=== PATIENT | male | born 1960 | race Caucasian/White ===

== ENCOUNTER 2019-03-23 21:06 | Inpatient (IN) ==
[2019-03-23] MEDS ORDERED: *HR* FentaNYL (PF) 100 MCG/2 ML VIAL ONE (21:48)
[2019-03-23] MEDS ORDERED: *HR* Midazolam HCl 2 MG/2 ML VIAL ONE (21:48)
[2019-03-23] MEDS ORDERED: Verapamil 5 MG/2 ML VIAL ONE (21:52)
--- NOTE | 2019-03-23 22:36 | Cardiology Consult Note ---
Date of Encounter: 03/23/19 Time of Encounter: 21:25 Assessment and Plan Discussion w patient/family: The assessment and plan as outlined above was discussed with the patient and/or family members who expressed understanding and agreement. All questions were answered. Thank you for involving us in the care of your patient. Please call with any questions. Discussed with patient. No family available History of Present Illness Consult date: 03/23/19 Consult reason: STEMI Chief complaint: 58 yo male with cp and sob and emesis. Seen in [facility] and transferred. Peter History of present illness: Mr. Crawford is a 58 year old male seen at [facility] with STEMI. Took some time at [facility] for stabilization. Past Med Surg Social Fam HX - Past Medical History Medical history: hyperlipidemia, hypertension Additional medical history: Chronic back pain Psychiatric history: anxiety, depression - Past Surgical History Additional surgical history: Abdominal Stent Graft - Social History Smoking Status: Current every day smoker Smokeless Tobacco Status: No Alcohol use: none Drug use: none Medications and Allergies Albuterol Sulfate [Proair Hfa] 1 puff IH Q6H PRN 04/27/16 [History] Atorvastatin [Lipitor] 20 mg PO HS 04/27/16 [History] Losartan/HCTZ [Hyzaar 50-12.5 Tablet] 1 each PO DAILY 04/27/16 [History] Metoprolol [Lopressor] 100 mg PO DAILY 04/27/16 [History] OxyCODONE/APAP 10/325 [Percocet 10/325 MG] 1 each PO Q6HR PRN 04/27/16 [History] Allergy/AdvReac Type Severity Reaction Status Date / Time azithromycin [From Zithromax] AdvReac Nausea Verified 03/28/16 08:02 levofloxacin [From Levaquin] AdvReac Muscle Pain Verified 03/28/16 08:02 All Systems Review: The remainder of the systems were reviewed and are negative - Cardiovascular Cardiovascular: as per HPI, diaphoresis, dyspnea on exertion - Respiratory Respiratory: dyspnea Results - EKG Interpretation EKG results cardiology: other (inferior wall STEMI. Cath done emergently and needs CABG) Consult Discharge Plan - Plan Additional Instructions: Surgical consult for CABG
[2019-03-23] MEDS ORDERED: Nitroglycerin 0.4 MG TAB.SUBL SL PRN (22:41)
--- NOTE | 2019-03-23 22:41 | Invasive Diagnostic Lab Proc ---
Name: Jose Crawford Date of Study: 03/23/2019 Date: 1960 Ht: 70.1in Medical Record#: [id number] Age: 58 Wt: 218.26lb Gender: Male BSA: 2.17 Order #: [id number] BMI: 31.25 Physicians Procedure Physician: Calvin Barraza MD Referring MD: Referring MD: Staff Name Position [facility] 09:35 PM Job Medina RN Drain Tile Press Operator 09:35 PM Yuliet Marquez RN Scrub 09:35 PM Indications Indication STEMI Procedures Performed Procedure L HRT ARTERY/VENTRICLE ANGIO Pre-Procedure Checklist Pt not NPO for procedure and MD aware. Blood Pressure: 201/117 Plan of Care Patient will tolerate the procedure without complications. Adequate level of comfort will be maintained. Hemodynamics will remain stable Patient will recover from procedure without complications. Respiratory function will be maintained. Cardiac rhythm will remain stable. Patient temperature will be maintained. Patient and/or family have verbalized understanding of the procedure. Patient Education Allergies azithromycin levofloxacin Vital Signs Time BP (mmHg) HR (bpm) O2 Sat. RR (bpm) LOC 09:31 PM 201 / 117 72 92 % 20 5 = Fully awake and oriented or at pre-proc level 09:51 PM / % 5 = Fully awake and oriented or at pre-proc level 09:51 PM / % 4 = Oriented but drowsy 09:49 PM 186 / 109 87 95 % 13 09:53 PM 194 / 109 82 95 % 10 09:58 PM 170 / 99 67 93 % 14 10:03 PM 164 / 101 89 93 % 15 10:08 PM 164 / 101 79 93 % 13 10:13 PM 165 / 106 77 94 % 15 10:18 PM 173 / 109 73 95 % 17 Procedural Medications Time Medication Dose Units Method Given By 09:50 PM Oxygen 2 L/min nasal cannula Job Medina RN 09:52 PM Lidocaine 2% 1 ml Subcutaneous Calvin Barraza MD 09:53 PM Heparin 3000 units Nitroglycerin 200 mcg Verapamil 2.5 mg Intraarterial Calvin Barraza MD 09:50 PM Versed 1 mg Intravenous Job Medina RN 09:50 PM Fentanyl 50 mcg Intravenous Job Medina RN Zack Score Preprocedure Postprocedure Activity 2- Moves 4 extremities sustained head lift Activity 2- Moves 4 extremities sustained head lift Circulation 2- SBP +/= 20 points of pre-anesthetic level Circulation 2- SBP +/= 20 points of pre-anesthetic level Consciousness 2- Awake and alert oriented x 3 Consciousness 2- Awake and alert oriented x 3 O2 Saturation 2- Able to maintain O2 satruation of 92% on room air O2 Saturation 2- Able to maintain O2 satruation of 92% on room air Respiratory 2- Able to deep breathe and cough well Respiratory 2- Able to deep breathe and cough well Total Score 10 Total Score 10 Contrast Agent: Isovue Diagnostic Contrast: 96 ml Total Contrast: 96 ml Fluoro Dose: 40 mGy Procedure Log Time Note Enter By 09:28 PM [facility] 09:35 PM Janelle Corbin RN Position: Monitor Time in: 21:35 [place] [id number] 09:35 PM Job Medina RN Position: Drain Tile Press Operator Time in: 21:35 [place] [id number] 09:35 PM Yuliet Marquez RN Position: Scrub Time in: 21:35 [place] [address] 09:35 PM Patient charges- Angio tray pack, Navilyst 3mm J, Pulse Oximetry and ACIST tubing and transducer [facility] 09:42 PM 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 Informed consent was obtained. [facility] 09:42 PM Procedure start 21:42 [facility] 09:47 PM Vitals capture started with the following parameters, Patient=Adult, Interval=5 min, Initial Ifaoavfd=597 mmHg, Deflation Rate=3 mmHg, Cuff placed on Right Arm 09:49 PM HR=87 bpm, OUBM=881/109 mmhg, SpO2=95.0 %, Resp=13 B/min 09:50 PM Time: 21:50 Versed 1 mg Intravenous Given by Job Medina RN carlitos 09:50 PM Time: 21:50 Fentanyl 50 mcg Intravenous Given by Job Medina RN [email or web address] 09:50 PM Hair removed from procedure site in procedure lab using clippers. Right wrist and Right groin prepped with Chloraprep by Yuliet Marquez RN, then patient was draped. Skin intact. tsoummers 09:50 PM Time: 21:50 Oxygen on at 2 L/min per nasal cannula by Job Medina RN tsoummers 09:50 PM Time out was performed according to hospital policy. Conscious sedation and anesthesia was achieved (see medication log with in this report above) tsoummers 09:50 PM pt received 4000 heparin IVP JEWELRY FINISHER and 180mg brilinta orally JEWELRY FINISHER. Dr. Barraza aware tsoummers 09:51 PM Time: 21:51 Patient comfortable and pain free: No tsoummers :51 PM Time: 21:51LOC: 5 = Fully awake and oriented or at pre-proc level tsoummers 09:52 PM Time: 21:52 1 ml Lidocaine 2% to right radial Subcutaneous Given by Calvin Barraza MD oumm 09:53 PM Access obtained by percutaneous puncture. 6Fr 10cm Terumo [place] sheath placed in right Radial artery. [id number] tsoummers 09:53 PM HR=82 bpm, SCAU=761/109 mmhg, SpO2=95.0 %, Resp=10 B/min 09:53 PM Time: 21:53 Patient given 3,000 units Heparin, 200 mcg Nitroglycerin, and 2.5 mg Verapamil Intraarterial by Calvin Barraza MD. This is given to reduce risk of vessel spasm and thrombosis. tsoummers 09:54 PM Pressure channel 1 zero failed. 09:54 PM Pressure channel 1 zeroed. 09:54 PM Recorded ECG: HR=69 Condition=Condition 1 09:56 PM Pressure channel 1 zero failed. 09:57 PM 0.035 145cm Navilyst 3mmJ wire [id number] tsoummers 09:57 PM 5Fr FL 4 catheter inserted over the wire C tsoummers 09:58 PM wire removed tsoummers 09:58 PM HR=67 bpm, UCQD=281/99 mmhg, SpO2=93.0 %, Resp=14 B/min 09:59 PM LCA angiography performed in multiple views. tsoummers 10:01 PM 0.035 260cm Navilyst 3mmJ wire [id number] tsoummers 10:01 PM Catheter removed tsoummers 10:03 PM 6Fr JR 4 Runway guide catheter was used to cannulate the PCI vessel successfully. reused? No tsoummers 10:03 PM wire removed tsoummers 10:03 PM HR=89 bpm, EZDR=326/101 mmhg, SpO2=93.0 %, Resp=15 B/min 10:04 PM Recorded Pressure: Ao, HR=77, Condition=Condition 1 (Aorta) Ao 151/83/112 10:04 PM RCA angiography performed in multiple views. tsoummers 10:06 PM Recorded Pressure: Ao, HR=78, Condition=Condition 1 (Aorta) Ao 116/61/83 10:06 PM Time: 21:51 Patient comfortable and pain free: Yes tsoummers 10:06 PM Time: 21:51LOC: 4 = Oriented but drowsy tsoummers 10:08 PM HR=79 bpm, VFKT=962/101 mmhg, SpO2=93.0 %, Resp=13 B/min 10:09 PM Guide catheter removed intact. tsoummers 10:10 PM 5Fr Pigtail catheter inserted over the wire [facility] tsoummers 10:12 PM Recorded Pressure: LV, HR=68, Condition=Condition 1 (Left Ventricle) LV 148/-5/11 10:12 PM Catheter crossed the aortic valve and was selectively placed in the left ventricle. Pressures recorded on pullback for left heart catheterization. tsoummers 10:12 PM Bolus angiogram of left Ventricle complete: 10 ml/sec for a total of 30 mls tsoummers 10:12 PM Recorded Pressure: LV, Ao, HR=80, Condition=Condition 1 (Left Ventricle) LV 153/-4/13, (Aorta) Ao 157/82/113 10:13 PM Catheter removed tsoummers 10:13 PM HR=77 bpm, XQFN=640/106 mmhg, SpO2=94.0 %, Resp=15 B/min 10:15 PM Sign out completed: Radiation Dose 304.80 mGy, 39.5 Gy/cm2 Fluoro Time: 2.9 Isovue 370 - 200ml contrast 96 ml given by Calvin Barraza MD. Complications: None. The patient was discharged out of the laborer mine in stable condition. Sedation minutes 25. Cardiac Rehab Consult needed: Yes. Confirmed administered medications: Yes tsoummers 10:16 PM Isovue 370 - 200ml,1 Bottle(s) used. tsoummers 10:16 PM Arterial sheath pulled, Vasc Band closure device used and was Successful S/N. tsoummers 10:16 PM Estimated Blood Loss: less than 50cc tsoummers 10:16 PM Post ECG NSR tsoummers 10:16 PM Post Blood Pressure 165/106 tsoummers 10:16 PM 22:16 Post Pulses Rt Radial 1+ tsoummers 10:17 PM Information taught Cardiac Cath and Vasc Band tsoummers 10:17 PM Education needs Procedure, Plan of Care, and Responsibilities of Patient in Care tsoummers 10:17 PM Learning barriers :None tsoummers 10:17 PM Education Methods Verbal [facility] 10:17 PM Education evaluation Able to repeat information [facility] 10:17 PM Site status No bleeding/ No Hematoma - Rt Wrist as reported by Yuliet Marquez RN at 22:17 tsoummers 10:17 PM Delay to floor No tsoummers 10:17 PM no family present at this time tsoummers 10:17 PM 9 ml air in Vasc Band. tsoummers 10:18 PM HR=73 bpm, FNHP=225/109 mmhg, SpO2=95.0 %, Resp=17 B/min 10:19 PM Coronary Dominance: Left tsoummers 10:20 PM Lesion found in Mid RCA. Pre Stenosis: 95 Pre DAREN Flow: tsoummers 10:20 PM Lesion found in Proximal LAD. Pre Stenosis: 85 Pre DAREN Flow: tsoummers 10:20 PM Lesion found in 1st Diagonal. Pre Stenosis: 95 Pre DAREN Flow: tsoummers 10:20 PM Lesion found in Proximal Circumflex. Pre Stenosis: 95 Pre DAREN Flow: tsoummers 10:20 PM Lesion found in 1st Marginal. Pre Stenosis: 95 Pre DAREN Flow: tsoummers 10:20 PM Proximal Left Anterior Descending Coronary Artery with 85% stenosis. If graft is supplying this territory, 0 % stenosis. tsoummers 10:20 PM Mid/Distal Left Anterior Descending Coronary Artery and diagonal branches with 95% stenosis. If graft is supplying this area, 0 % stenosis tsoummers 10:20 PM Circumflex, Obtuse Marginal, Left Posterior Descending, and Left Posterolateral Coronary Arteries with 95 % stenosis. If graft is supplying this area, 0 % stenosis tsoummers 10:20 PM Right Coronary, Right Posterior Descending Arteries with Right Posterolateral and Acute Marginal branches with 95 % stenosis. If graft is supplying this area, 0 % stenosis tsoummers 10:24 PM Did you address DAREN flow and Dominance? YesCoronary Dominance: Left tsoummers 10:33 PM Report given to Marlin SOLOMON Pt taken to ICU Room #11. 22:32 tsoummers 10:33 PM Patient out of room: 22:33 tsoummers 10:33 PM Conversation between Interventionalist and CT Surgeon. kwabena Complications Complication None Hemodynamics Pressures Site Systolic/A Wave Diastolic/V Wave Mean AO 151 83 112 AO 116 61 83 LV 148 -5 11 LV 153 -4 13 AO 157 82 113 Post Procedure Information Blood Pressure: 165/106 mmHg Rhythm: NSR Post procedural instructions were given Surgery consult for CABG Closure Device Time Device Success/Fail 03/23/2019 10:19:00 PM Mechanical Compression Successful Site Checks Time Location Status Staff Sheath In? Note 10:17 PM Rt Wrist No bleeding/ No Hematoma Yuliet Marquez RN Pulses Time Site Pre-Procedure Post-Procedure Note 10:16:00 PM Rt Radial 1+ Updated by Janelle Corbin RN on 03/23/2019 10:34:18 PM electronically signed on 03/23/2019 10:34:43 PM with status of Final
[2019-03-23] MEDS: *HR* Labetalol 20 MG/4 ML SYRINGE IVP PRN (23:49)
[2019-03-24] MEDS: Nitroglycerin 25 MG/250 ML INFUS..BTL IVC SCH ×7 (00:15→21:34)
[2019-03-24] MEDS ORDERED: Ondansetron 4 MG/2 ML VIAL ONE (01:59)
[2019-03-24] MEDS: Ondansetron 4 MG/2 ML VIAL IVP PRN ×2 (02:05→10:57)
[2019-03-24] MEDS: Morphine Sulfate 2 MG/ML SYRINGE IVP PRN ×3 (02:27→12:02)
--- NOTE | 2019-03-24 02:32 | Internal Medicine Consult Note ---
<Louis De La Torre - Last Filed: 03/24/19 06:18> Date of Encounter: 03/24/19 Time of Encounter: 02:31 - Assessment and Plan (1) ST elevation myocardial infarction (STEMI) Current Visit: Yes Status: Acute Assessment and plan: As seen on EKGs with ST segment elevations in leads II, III, and aVf Underwent LHC which revealed severe triple vessel disease CT surgery consulted Heparin drip ASA 81mg daily Atorvastatin 40mg daily Metoprolol 12.5 mg BID Continued monitoring on telemetry Qualifiers: Involved coronary artery: unspecified coronary artery Qualified Code(s): I21.3 - ST elevation (STEMI) myocardial infarction of unspecified site (2) HTN (hypertension) Current Visit: Yes Status: Acute Assessment and plan: Acutely elevated after LHC Refractory to Labetalol Placed on Nitroglycerin drip for further control Qualifiers: Hypertension type: essential hypertension Qualified Code(s): I10 - Ess ential (primary) hypertension (3) Nausea and vomiting Current Visit: Yes Status: Acute Assessment and plan: Actively vomiting shortly after encounter Given Zofran, however continued to vomit Will order Phenergan and continue to monitor on tele. QTc reviewed from previous EKGs Qualifiers: Vomiting type: bilious vomiting Qualified Code(s): R11.14 - Bilious vomiting (4) Tobacco abuse Current Visit: Yes Status: Chronic (5) DVT prophylaxis Current Visit: Yes Status: Acute Assessment and plan: On Heparin drip (6) CAD (coronary artery disease) Current Visit: Yes Status: Acute Assessment and plan: As above Qualifiers: Coronary Disease-Associated Artery/Lesion type: [place] artery [place] vs. transplanted heart: [place] heart Associated angina: with unspecified angina Qualified Code(s): I25.119 - Atherosclerotic heart disease of [place] coronary artery with unspecified angina pectoris - Time Spent With Patient Total time spent is greater than 50% in coordination of care (as documented) at patient's floor/unit and/or counseling patient: Internal Medicine - CN: HPI - Data of Consult Requesting Physician: Calvin Barraza MD - Consult Narrative Reason for consult: Angina History of present illness: Mr. Crawford is a 58 year old male with PMH of HTN, HLD, chronic back pain, and depression. He initially presented to [place] ED with complaints of chest pain and vomiting. EKG showed ST elevations in leads II, III, and aVf with reciprocal changes consistent with inferior [place]. He was subsequently transferred to [facility] for cardiac cath. Underwent LHC with Dr Barraza overnight which revealed severe 3 vessel disease. LVEF 45%. CT surgery consulted for CABG. Hospitalist was consulted for further assistance with management of chronic diseases. On arrival in the ICU, the patient does endorse some continued, but improved, chest pain. States he also feels nauseous. Denies any shortness of breath, headache, numbness, or tingling. Past Med Surg Social Fam HX - Past Medical History Medical history: hyperlipidemia, hypertension Additional medical history: Chronic back pain Psychiatric history: anxiety, depression - Past Surgical History Additional surgical history: Abdominal Stent Graft - Social History Smoking Status: Current every day smoker Smokeless Tobacco Status: No Alcohol use: none Drug use: none - Constitutional Constitutional: no chills, no fatigue, no fever(s) - Cardiovascular Cardiovascular ROS IM: no diaphoresis, no dyspnea, no palpitations - Respiratory Respiratory: no dyspnea, no wheezing, no chest congestion, no excessive phlegm production, no change in phlegm color - Gastrointestinal Gastrointestinal: nausea, vomiting, no constipation, no diarrhea - Genitourinary Genitourinary ROS male: no difficulty urinating, no dysuria, no flank pain - Neurological Neurological ROS: no numbness, no tingling Internal Medicine - CN: Meds Albuterol Sulfate [Proair Hfa] 1 puff IH Q6H PRN 04/27/16 [History] Atorvastatin [Lipitor] 20 mg PO HS 04/27/16 [History] Losartan/HCTZ [Hyzaar 50-12.5 Tablet] 1 each PO DAILY 04/27/16 [History] Metoprolol [Lopressor] 100 mg PO DAILY 04/27/16 [History] OxyCODONE/APAP 10/325 [Percocet 10/325 MG] 1 each PO Q6HR PRN 04/27/16 [History] Allergy/AdvReac Type Severity Reaction Status Date / Time azithromycin [From Zithromax] AdvReac Nausea Verified 03/28/16 08:02 levofloxacin [From Levaquin] AdvReac Muscle Pain Verified 03/28/16 08:02 Hospitalist - CN: Exam - Constitutional Vitals: Temp Pulse Resp BP Pulse Ox 98.6 F 77 14 128/85 94 07/01/19 00:00 03/24/19 02:00 03/24/19 02:00 03/24/19 02:00 03/24/19 02:00 General appearance IM: Present: cooperative, A&O X 3, pleasant, no acute distress, answers questions appropriately Exam: Constitutional: Well-developed male in no acute distress Head: Normocephalic, atraumatic Eyes: PERRL, EOMI, conjunctiva pink, sclera anicteric Neck: trachea midline Lungs: Clear to auscultation bilaterally. Nonlabored breathing. No wheezes, rales, or rhonchi noted. Cardiac: RRR. +s1 +s2 No murmurs, clicks, or rubs noted. GI: Abdomen soft, nontender, nondistended. Extremities: Warm, radial pulses palpable and symmetrical. No cyanosis, pedal edema, or calf tenderness. Neuro: Alert and oriented 3. No focal deficits. Normal speech. Skin: Warm, dry, and intact. Internal Medicine - CN: Reslt - Labs CBC & Chem 7: 03/24/19 03:03 03/24/19 03:03 Consult Discharge Plan - Plan Additional Instructions: Surgical consult for CABG <Aime Parsons - Last Filed: 03/24/19 06:48> Date of Encounter: 03/24/19 - Assessment and Plan (1) ST elevation myocardial infarction (STEMI) Current Visit: Yes Status: Acute Qualifiers: Involved coronary artery: unspecified coronary artery Qualified Code(s): I21.3 - ST elevation (STEMI) myocardial infarction of unspecified site (2) HTN (hypertension) Current Visit: Yes Status: Acute Qualifiers: Hypertension type: essential hypertension Qualified Code(s): I10 - Essential (primary) hypertension (3) Nausea and vomiting Current Visit: Yes Status: Acute Qualifiers: Vomiting type: bilious vomiting Qualified Code(s): R11.14 - Bilious vomiting (4) DVT prophylaxis Current Visit: Yes Status: Acute (5) Tobacco abuse Current Visit: Yes Status: Chronic (6) CAD (coronary artery disease) Current Visit: Yes Status: Acute Qualifiers: Coronary Disease-Associated Artery/Lesion type: [place] artery [place] vs. transplanted heart: [place] heart Associated angina: with unspecified angina Qualified Code(s): I25.119 - Atherosclerotic heart disease of [place] coronary artery with unspecified angina pectoris - Time Spent With Patient Total time spent is greater than 50% in coordination of care (as documented) at patient's floor/unit and/or counseling patient: Internal Medicine - CN: HPI - Data of Consult Requesting Physician: Calvin Barraza MD - Consult Narrative History of present illness: Mr. Crawford is a 58 year old male Hospitalist - CN: Exam - Constitutional Vitals: Temp Pulse Resp BP Pulse Ox 97.8 F 78 13 145/78 94 03/24/19 03:49 03/24/19 06:00 03/24/19 06:00 03/24/19 06:00 03/24/19 06:00 Internal Medicine - CN: Reslt - Labs CBC & Chem 7: 03/24/19 03:03 03/24/19 03:03 Labs: Short CBC 03/24/19 Range/Units 03:03 WBC 13.5 H (4.3-11.1) K/mcL Hgb 15.2 D (12.9-16.9) g/dL Hct 45.7 (37.5-50.1) % Plt Count 231 (140-400) K/mcL Neutrophils # 10.0 H (1.6-8.9) K/mcL BMP 03/24/19 03:03 Sodium 136 Potassium 3.6 Chloride 102 Carbon Dioxide 25 BUN 15 Creatinine 1.18 Glucose 143 H Calcium 8.5 L - ABG Interpretation ABG results: PT/INR, D-dimer PT 11.6 Seconds (9.4-12.1) 03/24/19 03:03 - Attending Attestation I saw and evaluated the patient. I reviewed the residents note, performed my own physical examination and agree with findings and plan as documented in the residents note. Patient seen and examined on 03/24/19. Cardiology requested consult for hospitalist team for patient now in ICU after undergoing cardiac cath for inferior NJ. Patient now stable, requires CABG. Cardiology notified CT surgery, we placed consult in for them. We will continue to monitor while on heparin, nitro. Follow up recommendations from cardiothoracic surgery.
[2019-03-24] MEDS ORDERED: *HR* Heparin 5,000 UNIT/ML VIAL IVP ONE (02:44)
[2019-03-24] MEDS ORDERED: *HR* Heparin 5,000 UNIT/ML VIAL IVP PRN (02:44)
[2019-03-24] MEDS: Heparin 25,000 UNIT/250 ML D5W 25,000 UNIT/250 ML IV.SOLN IVC SCH (03:14)
[2019-03-24 03:16] LABS: Basophils # 0.1 K/mcL (0.0-0.2); Basophils % 0.4 %; Hematocrit 45.7 % (37.5-50.1); Hemoglobin 15.2 g/dL (12.9-16.9); Immature Granulocytes % 0.3 % (0-4); Lymphocytes # 2.5 K/mcL (0.6-4.6); Lymphocytes % 18.8 %; Mean Corpuscular HGB Conc 33.3 g/dL (31.6-35.5); Mean Corpuscular Volume 90.1 fL (83.0-100.0); Mean Platelet Volume 9.4 fL (9.4-12.4); Monocytes # 0.9 K/mcL (0.0-1.3); Monocytes % 6.4 %; Platelet Count 231 K/mcL (140-400); Red Blood Count 5.07 M/mcL (4.19-5.50); Red Cell Distribution Width 13.2 % (11.5-14.5); Segmented Neutrophils % 74.1 %; White Blood Count 13.5 K/mcL (4.3-11.1)
[2019-03-24] MEDS ORDERED: *HR* Promethazine 25 MG/ML VIAL IVP ONE (03:17)
[2019-03-24 03:31] LABS: Prothrombin Time 11.6 Seconds (9.4-12.1)
[2019-03-24 03:33] LABS: BUN/Creatinine Ratio 13 (6-26); Blood Urea Nitrogen 15 mg/dL (6-20); Calcium 8.5 mg/dL (8.6-10.3); Carbon Dioxide 25 mEq/L (23-29); Chloride 102 mEq/L (98-107); Glucose 143 mg/dL (70-105); Osmolality,Calculated 285 (280-300); Potassium 3.6 mEq/L (3.5-5.1); Sodium 136 mEq/L (136-145); eGFR For African Americans > 60 (> 60); eGFR For Non-African Americans > 60 (> 60)
[2019-03-24 03:43] LABS: Magnesium 1.8 mg/dL (1.6-2.6)
[2019-03-24] MEDS ORDERED: *HR* Enoxaparin 100 MG/ML SYRINGE SQ SCH (06:00)
[2019-03-24] MEDS ORDERED: Perflutren Lipid Microsphere 1.3 ML in 0.9 % Sodium Chloride 8.7 ML IVP ONE (07:28)
[2019-03-24] MEDS: Aspirin 81 MG TAB.CHEW PO SCH (08:49)
--- NOTE | 2019-03-24 09:22 | Cardiothoracic Consult Note ---
Date of Encounter: 03/24/19 Time of Encounter: 09:17 Assessment and Plan (1) ST elevation myocardial infarction (STEMI) Current Visit: Yes Status: Acute The patient is a 58-year-old hypertensive man with hypercholesterolemia who was transferred to [facility] from an outside facility with a diagnosis of a STEMI. He underwent emergent cardiac catheterization was found to have severe 3 vessel CAD and it LVEF 45-50%. Initially, the patient had been recommended for CABG; however, the LAD did not appear to have significant/critical disease as mentioned in the cardiac catheterization report. I reviewed the films with Dr. Ghulam Dacosta this morning and he concurs. He suggested that the patient undergo repeat catheterization with FFR of the LAD lesion and if this was noncritical, the patient could undergo PCI and LCx stent placement. This was discussed with the patient and his daughter and he gives his consent. The assessment and plan as outlined above was discussed with the patient and/or family members who expressed understanding and agreement. All questions were answered. Qualifiers: Involved coronary artery: unspecified coronary artery Qualified Code(s): I21.3 - ST elevation (STEMI) myocardial infarction of unspecified site - History of Present Illness Consult date: 03/23/19 Requesting physician: Calvin Barraza Consult reason: CABG evaluation Chief complaint: STEMI History of present illness: Mr. Crawford is a 58 year old hypertensive man with hypercholesterolemia who was transferred to [facility] from [facility] with a diagnosis of a STEMI. He states that he experienced left precordial chest pain radiating to his left arm and associated shortness of breath and vomiting yester day. He was transported to [facility] via EMS and was diagnosed with an acute STEMI at that facility. He was treated medically and then transferred to [facility] for further cardiac care. The patient underwent emergent cardiac catheterization was found to have severe 3 vessel CAD and an LVEF 45-50%. In particular, the patient has proximal LAD disease, a 90-95% proximal LCx lesion, a 9095% proximal OM1 lesion, and a 95% mid RCA lesion (nondominant vessel). The transthoracic echocardiogram reveals an L LVEF 50% with no significant valvular disease. Cardiac catheterization was reviewed with Dr. Ghulam Dacosta and the LAD disease was not thought to be significant as documented by the cardiology interventionalists who performed the catheterization. Currently, the patient is resting comfortably in his hospital bed and has no complaints of substernal chest pain. Past Med Surg Social Fam HX - Past Medical History Medical history: COPD, coronary artery disease, hyperlipidemia, hypertension, m yocardial infarction, peripheral artery disease Additional medical history: Chronic back pain Psychiatric history: anxiety, depression - Past Surgical History Surgical History: tonsillectomy, vascular surgery (Endovascular abdominal aortic aneurysm repair), other (Hemorrhoidectomy, right knee arthroscopy, para pharyngeal abscess drainage) Additional surgical history: Abdominal Stent Graft - Social History Smoking Status: Current every day smoker Packs per day: 2-3PPD x 45YRS Smokeless Tobacco Status: No Alcohol use: none Drug use: none Occupational status: disabled Current living situation: Home - Independent Activity Level: Independent ambulation Recent Out of Country Travel Within the Last 8 Weeks: No Exposure or Possible Exposure to Illness During Travel: No Medications and Allergies Albuterol Sulfate [Proair Hfa] 1 puff IH Q6H PRN 04/27/16 [History] Atorvastatin [Lipitor] 20 mg PO HS 04/27/16 [History] Losartan/HCTZ [Hyzaar 50-12.5 Tablet] 1 each PO DAILY 04/27/16 [History] Metoprolol [Lopressor] 100 mg PO DAILY 04/27/16 [History] OxyCODONE/APAP 10/325 [Percocet 10/325 MG] 1 each PO Q6HR PRN 04/27/16 [History] Allergy/AdvReac Type Severity Reaction Status Date / Time azithromycin [From Zithromax] AdvReac Nausea Verified 03/28/16 08:02 levofloxacin [From Levaquin] AdvReac Muscle Pain Verified 03/28/16 08:02 All Systems Review: The remainder of the systems were reviewed and are negative Physical Examination Vital Signs, Last 4 Hours Temp Pulse Resp BP Pulse Ox 03/24/19 08:00 93 16 138/83 95 03/24/19 07:25 98.8 F 03/24/19 07:00 55 15 124/81 94 03/24/19 06:00 78 13 145/78 94 General: Conversant, No Apparent Distress HEENT: Atraumatic, Normocephaly, Trachea midline Neck: No JVD, Normal carotid pulses Cardiac: Reg Rate and Rhythm, Normal S1 and S2, No Murmur Lungs: Normal Breath Sounds, No Wheeze, Rales, Rhonchi Neuro: Alert and responsive, No focal deficits noted, Motor nerves intact, Sensory nerves intact Vascular: Normal capillary refill Abdomen: Soft, Non-tender Musculoskeletal: No Chest Wall Tenderness Extremities: No Clubbing, No Cyanosis, No Edema, Normal Pulses Results 03/24/19 03:03 03/24/19 03:03 Lab Results, Last 24 hours 03/24/19 03/24/19 03/24/19 03:03 03:03 03:03 WBC 13.5 H Hgb 15.2 D Hct 45.7 Plt Count 231 INR 1.0 Sodium 136 Potassium 3.6 Chloride 102 Carbon Dioxide 25 BUN 15 Creatinine 1.18 Glucose 143 H Calcium 8.5 L Magnesium 1.8 - Imaging Chest Xray: image reviewed (Normal cardiac size. No active pulmonary disease.) Consult Discharge Plan - Plan Additional Instructions: Surgical consult for CABG
[2019-03-24] MEDS: Ipratropium/Albuterol Neb 3 ML IH PRN ×2 (09:58→13:35)
[2019-03-24] MEDS: *HR* Heparin 5,000 UNIT/ML VIAL IVP PRN (10:20)
--- NOTE | 2019-03-24 11:00 | Event Note ---
Date of Encounter: 03/24/19 Time of Encounter: 10:58 Cardiothoracic surgery and interventional cardiology have reviewed films and are determining management. We will continue to follow along from a general cardiology standpoint. Continue ACS therapy. Darrel Freeman DO, FACC
--- NOTE | 2019-03-24 13:02 | Internal Med Progress Note ---
Hospitalist Progress Note - Encounter Date of Encounter: 03/24/19 Time of Encounter: 12:59 - Subjective Interval History: I have seen and evaluated the patient at bedside. patient reports feeling short of breath, denies chest pain, nausea, vomiting or light headedness. reports being a heavy smoker since the age of 13. - Exam Vitals: Temp Pulse Resp BP Pulse Ox 98.3 F 60 15 120/91 96 03/24/19 11:38 03/24/19 10:00 03/24/19 10:00 03/24/19 10:00 03/24/19 10:00 Exam: Vitals: Reviewed General: Alert and oriented x4. In mild distress due to shortness of breath Cardiovascular: RRR, normal S1 & S2, no rubs, murmurs or gallops. Lungs: decreased breath sounds b/l, no wheezes or crackles. Abdomen: Obese, soft, non-tender, no rigidity. Extremities: No edema Neurological: Normal cognition and motor skills. Rest of the physical exam is non contributory - Assessment and Plan (1) ST elevation myocardial infarction (STEMI) Current Visit: Yes Status: Acute Assessment and Plan: patient scheduled for [facility] today. continue heparin drip and nitro drip. car diology and CT surgery recommendations appreciated. on atorvastatin, aspirin and a bb. lipid panel and A1C ordered (2) HTN (hypertension) Current Visit: Yes Status: Chronic Assessment and Plan: BP is well controlled on a bb and nitro drip. (3) Nausea and vomiting Current Visit: Yes Status: Resolved (4) Tobacco abuse Current Visit: Yes Status: Chronic Assessment and Plan: patient with possible COPD, decrease breath sounds on auscultation b/l. Hx of tobacco abuse since age 13. patient would benefit from an outpatient PFTs. continue on bronchodilators Q4RT PRN incentive spirometry (5) CAD (coronary artery disease) Current Visit: Yes Status: Chronic Assessment and Plan: on Aspirin DVT Prophylaxis: intermittent pneumatic compression - Summary of Assessment and Plan Summary of Assessment and Plan: patient to remain in the hospital due to STEMI, on a heparin drip and nitro drip. scheduled to be retaken for C today - Time Spent with Patient Total time spent is greater than 50% in coordination of care (as documented) at patient's floor/unit and/or counseling patient: Greater than 35 minutes (40) Plan of Care Discussed with: patient (and the nurse) Internal Medicine: Result - Labs CBC & Chem 7: 03/24/19 03:03 03/24/19 03:03 Labs: Short CBC 03/24/19 Range/Units 03:03 WBC 13.5 H (4.3-11.1) K/mcL Hgb 15.2 D (12.9-16.9) g/dL Hct 45.7 (37.5-50.1) % Plt Count 231 (140-400) K/mcL Neutrophils # 10.0 H (1.6-8.9) K/mcL BMP 03/24/19 03:03 Sodium 136 Potassium 3.6 Chloride 102 Carbon Dioxide 25 BUN 15 Creatinine 1.18 Glucose 143 H Calcium 8.5 L - ABG Interpretation ABG results: PT/INR, D-dimer PT 11.6 Seconds (9.4-12.1) 03/24/19 03:03 - Impressions Impressions Echocardiogram 03/23/19 22:42 Impressions: LVEF 55%. Mild left ventricular diastolic dysfunction. Definity echo contrast was used. LV wall thickness measurements not well obtained. Possibly mild increased concentric LVH. Normal right ventricular structure and function. No significant valvular dysfunction. No pulmonary hypertension. Left Ventricular Wall Motion: Rest Echo Findings All wall segments showed normal motion. Findings: Study Quality * Technically challenging due to body habitus. ECG Findings * Normal sinus rhythm. Left Ventricle * LVEF 55%. * Mild left ventricular diastolic dysfunction. * Definity echo contrast was used. * LV wall thickness measurements not well obtained. Possibly mild increased concentric LVH. Right Ventricle * Normal right ventricular structure and function. Left Atrium * Normal left atrial size. Right Atrium * Normal right atrial size. Interatrial Septum * No evidence of PFO by color Doppler. Aortic Valve * Aortic valve not well visualized. * No aortic regurgitation. * No aortic stenosis. Mitral Valve * Normal mitral valve structure. * No mitral regurgitation. * No mitral stenosis. Tricuspid Valve * Tricuspid valve not well visualized. * Trace tricuspid regurgitation. * Estimated RA pressure is 3 mmHg. * Estimated RVSP is 20 mmHg. * No pulmonary hypertension. Pulmonic Valve * Pulmonic valve is not well visualized. * No pulmonic stenosis. * No pulmonic regurgitation. Pulmonary Artery * Pulmonary artery not well visualized. Aorta * Normally sized aortic root. Pericardium * There is no pericardial effusion present. IVC * Normal IVC dimensions and inspiratory collapse. Consult Discharge Plan - Plan Additional Instructions: Surgical consult for CABG Referrals: Gianfranco Lockett MD [Primary Care Provider] - (1) ST elevation myocardial infarction (STEMI) Qualifiers: Involved coronary artery: unspecified coronary artery Qualified Code(s): I21.3 - ST elevation (STEMI) myocardial infarction of unspecified site (2) HTN (hypertension) Qualifiers: Hypertension type: essential hypertension Qualified Code(s): I10 - Essential (primary) hypertension (3) Nausea and vomiting Qualifiers: Vomiting type: bilious vomiting Qualified Code(s): R11.14 - Bilious vomiting (5) CAD (coronary artery disease) Qualifiers: Coronary Disease-Associated Artery/Lesion type: [place] artery [place] vs. transplanted heart: kake heart Associated angina: with unspecified angina Qualified Code(s): I25.119 - Atherosclerotic heart disease of [place] coronary artery with unspecified angina pectoris
--- NOTE | 2019-03-24 13:48 | Pre-Sedation Evaluation ---
Pre-sedation evaluation - Pre-sedation checklist Date of procedure: 03/24/19 Procedure: c Recent Vitals: Last Vital Signs Temp 98.3 F 03/24/19 11:38 Pulse 71 03/24/19 11:00 Resp 17 03/24/19 13:34 BP 120/91 03/24/19 10:00 Pulse Ox 94 03/24/19 13:34 Previous reaction to sedatives/anesthetics: No Dietary Status: NPO after Midnight ASA Classification *see protocol: CLASS II-Mild systemic disease Plan of Care: Pt appropriate candidate for procedure/moderate/conscious sedation, Risks/benefits of procedure/sedation discussed w/ patient/family Cardiac Registry (Cardio Only) - Functional Capacity Functional Capacity: >=4 METS with symptoms - Clincal Frailty Scale Clinical Frailty Scale: Managing Well
[2019-03-24] MEDS ORDERED: 0.9 % Sodium Chloride 1,000 ML ONE ×2 (13:51→14:04)
[2019-03-24] MEDS ORDERED: Heparin 1,000 UNITS/500 mL 500 ML ONE (13:52)
[2019-03-24] MEDS ORDERED: Nitroglycerin 1,000 MCG/10 ML VIAL IV ONE (13:52)
[2019-03-24] MEDS ORDERED: ISOVUE-370 200 ML INFUS..BTL ONE ×2 (13:52→14:59)
[2019-03-24] MEDS ORDERED: *HR* Heparin 10,000 UNIT/10 ML VIAL ONE (13:52)
[2019-03-24] MEDS ORDERED: Verapamil 5 MG/2 ML VIAL ONE (14:04)
[2019-03-24] MEDS ORDERED: *HR* Midazolam HCl 2 MG/2 ML VIAL ONE (14:08)
[2019-03-24] MEDS ORDERED: *HR* FentaNYL (PF) 100 MCG/2 ML VIAL ONE (14:08)
[2019-03-24] MEDS ORDERED: Tirofiban 12.5 MG/250ML 12.5 MG/250 ML BAG ONE (15:27)
--- NOTE | 2019-03-24 15:40 | Invasive Diagnostic Lab Proc ---
Name: Jose Crawford Date of Study: 03/24/2019 Date: 1960 Ht: 70.1in Medical Record#: [id number] Age: 58 Wt: 227.08lb Gender: Male BSA: 2.2 Order #: [id number] BMI: 32.51 Physicians Procedure Physician: Ghulam Dacosta MD, [facility] Referring MD: Referring MD: Staff Name Position Time In Krystyna Schwartz RT (R) Scrub 02:12 PM yung duarte 02:12 PM Jose Duarte RN Monitor 02:12 PM Konrad Dow RN Wire Transfer Clerk 02:12 PM Joshua Chowdhury RN Wire Transfer Clerk 02:12 PM Procedures Performed Procedure L HRT ARTERY/VENTRICLE ANGIO Pre-Procedure Checklist Informed consent is complete signed and on chart. H&P is on chart. ID band is on and ID verified with patient. Patient NPO for procedure The procedure was described for the patient and questions were answered. ECG is on chart. Plan of Care Patient will tolerate the procedure without complications. Adequate level of comfort will be maintained. Hemodynamics will remain stable Patient will recover from procedure without complications. Respiratory function will be maintained. Cardiac rhythm will remain stable. Patient temperature will be maintained. Patient and/or family have verbalized understanding of the procedure. Patient Education Chief Complaint/Reason for Test: Cardiac Cath Developmental Category: Adult (18-64 years) Developmentally Appropriate for Age: Yes Learning Barriers: None Education Needs: Procedure Education Method: Verbal Information Taught: Cardiac Cath Educational Evaluation: Able to repeat information Intravenous Access Time IV Size Location DC'd Fluid/Drip Rate Units RN 18g 1 1/" Patent On Arrival Lt Antecubital 0.9NaCl ml/hr 18g 1 1/4" Patent On Arrival Rt Antecubital Allergies azithromycin levofloxacin Vital Signs Time BP (mmHg) HR (bpm) O2 Sat. RR (bpm) LOC 02:12 PM / % 5 = Fully awake and oriented or at pre-proc level 02:12 PM / % 4 = Oriented but drowsy 02:27 PM / % 4 = Oriented but drowsy 02:42 PM / % 4 = Oriented but drowsy 02:57 PM / % 4 = Oriented but drowsy 02:21 PM 152 / 93 90 96 % 13 02:25 PM 132 / 82 74 94 % 15 02:30 PM 132 / 77 68 94 % 16 02:35 PM 136 / 75 84 95 % 14 02:40 PM 134 / 86 84 93 % 12 02:46 PM 129 / 81 78 96 % 14 02:50 PM 142 / 84 70 94 % 13 02:55 PM 128 / 89 79 95 % 11 03:01 PM 147 / 68 62 95 % 16 03:05 PM 163 / 97 77 95 % 13 03:10 PM 149 / 85 84 93 % 15 03:15 PM 157 / 93 81 94 % 9 03:20 PM 143 / 87 80 97 % 16 Procedural Medications Time Medication Dose Units Method Given By 02:13 PM Nitroglycerin 150 mcg/hr Intravenous 02:15 PM Oxygen 2 L/min nasal cannula Konrad Dow RN 02:22 PM Versed 1 mg Intravenous Joshua Chowdhury RN 02:22 PM Fentanyl 25 mcg Intravenous Joshua Chowdhury RN 02:39 PM Lidocaine 2% 0.5 ml Subcutaneous Ghulam Dacosta MD, FAC 02:40 PM Heparin 1500 units Nitroglycerin 200 mcg Verapamil 2.5 mg Intraarterial Ghulam Dacosta MD, FACC 02:44 PM Nitroglycerin 100 mcg Intracoronary Ghulam Dacosta MD 03:30 PM Aggrastat Bolus: 50 ml Intravenous Konrad Dow RN 03:30 PM Aggrastat 12.5mg/250ml 18 ml Intravenous Konrad Dow RN 03:31 PM Plavix 600 mg Orally Joshua Chowdhury RN ASA Classification: CLASS II- Mild systemic disease (i.e. well-controlled diabetes, hypertension, asthma, cigarette smoking) Zack Score Preprocedure Postprocedure Activity 2- Moves 4 extremities sustained head lift Activity Circulation 2- SBP +/= 20 points of pre-anesthetic level Circulation Consciousness 2- Awake and alert oriented x 3 Consciousness O2 Saturation 2- Able to maintain O2 satruation of 92% on room air O2 Saturation Respiratory 2- Able to deep breathe and cough well Respiratory Total Score 10 Total Score Contrast Agent: Isovue Diagnostic Contrast: 157 ml Total Contrast: 157 ml Fluoro Dose: 50 mGy Activated Clotting Time Time Seconds to Clot 02:53 PM Procedure Log Time Note Enter By 02:12 PM Pt arrived to slab grinder 2 at 14:12 oparker 02:12 PM Physician arrived 14:12 oparker 02:12 PM Meet and carrie completed oparker 02:12 PM Sign in performed according to hospital policy. Informed consent was obtained. oparker 02:12 PM Procedure start 14:12 oparker 02:12 PM Time: 14:12 Patient comfortable and pain free: Yes oparker 02:12 PM Time: 14:12LOC: 5 = Fully awake and oriented or at pre-proc level oparker 02:12 PM Krystyna Schwartz (R) Position: Scrub Time in: 14:12 oparker 02:12 PM Jose Duarte RN Position: Monitor Time in: 14:12 oparker 02:12 PM Konrad Dow RN Position: Wire Transfer Clerk Time in: 14:12 oparker 02:13 PM Joshua Chowdhury RN Position: Wire Transfer Clerk Time in: 14:12 oparker 02:13 PM Patient arrived at 14:13 with Nitroglycerin Intravenous drip @ 150 mcg/hr oparker 02:13 PM Patient charges- Angio tray pack, Navilyst 3mm J, Pulse Oximetry and ACIST tubing and transducer oparker 02:15 PM CathStat 02:15 PM Time: 14:15 Oxygen on at 6 L/min per nasal cannula by Konrad Dow RN oparker 02:18 PM Hair removed from procedure site in holding area using clippers. Right wrist and Right groin prepped with Chloraprep by Krystyna Schwartz (R), then patient was draped. Skin intact. oparker 02:19 PM Vitals capture started with the following parameters, Patient=Adult, Interval=5 min, Initial Hibpveoa=280 mmHg, Deflation Rate=3 mmHg, Cuff placed on Right Arm 02:20 PM ASA Class CLASS II- Mild systemic disease (i.e. well-controlled diabetes, hypertension, asthma, cigarette smoking) oparker 02:21 PM HR=90 bpm, KBQF=071/93 mmhg, SpO2=96.0 %, Resp=13 B/min 02:22 PM Time: 14:22 Versed 1 mg Intravenous Given by Joshua Chowdhury RN oparker 02: PM Time: 14:22 Fentanyl 25 mcg Intravenous Given by Joshua Chowdhury RN oparker 02:25 PM HR=74 bpm, VPNE=125/82 mmhg, SpO2=94.0 %, Resp=15 B/min, Comment=NSR 02:26 PM Recorded ECG: HR=68 Condition=Condition 1 02:27 PM Time: 14:12LOC: 4 = Oriented but drowsy oparker 02:27 PM Time: 14:12 Patient comfortable and pain free: Yes oparker 02:30 PM HR=68 bpm, ZPHX=857/77 mmhg, SpO2=94.0 %, Resp=16 B/min, Comment=NSR 02:33 PM Pressure channel 1 zeroed. 02:35 PM HR=84 bpm, UXKO=231/75 mmhg, SpO2=95.0 %, Resp=14 B/min, Comment=NSR 02:39 PM Time out was performed according to hospital policy. Conscious sedation and anesthesia was achieved (see medication log with in this report above) oparker 02:39 PM Time: 14:39 0.5 ml Lidocaine 2% to right radial Subcutaneous Given by Ghulam Dacosta MD, [facility] oparker 02:40 PM Access obtained by percutaneous puncture. 6Fr 10cm Terumo Glidesheath sheath placed in right Femoral artery. [id number] oparker 02:40 PM HR=84 bpm, LESQ=191/86 mmhg, SpO2=93.0 %, Resp=12 B/min, Comment=NSR 02:40 PM Time: 14:40 Patient given 1500 units Heparin, 200 mcg Nitroglycerin, and 2.5 mg Verapamil Intraarterial by Ghulam Dacosta MD, [facility]. This is given to reduce risk of vessel spasm and thrombosis. oparker 02:41 PM Pressure channel 1 zeroed. 02:42 PM 6Fr CLS 3.5 Runway guide catheter was used to cannulate the PCI vessel successfully. reused? No oparker 02:42 PM Time: 14:27 Patient comfortable and pain free: Yes oparker 02:42 PM Time: 14:27LOC: 4 = Oriented but drowsy oparker 02:44 PM Recorded Pressure: Ao, HR=92, Condition=Condition 1 (Aorta) Ao 112/74/90 02:44 PM Time: 14:44 Nitroglycerin 100 mcg Intracoronary Given by Ghulam Dacosta MD oparker 02:45 PM .014 PT Graphix 182cm guide wire across target lesion- successful. reused? No oparker 02:46 PM Lesion found in 1st Marginal. Pre Stenosis: 95 Pre DAREN Flow: oparker 02:46 PM HR=78 bpm, WACW=006/81 mmhg, SpO2=96.0 %, Resp=14 B/min, EtCO2=32 mmHg, Comment=NSR 02:47 PM Inflation device was opened. oparker 02:49 PM Recorded Pressure: Ao, HR=78, Condition=Condition 1 (Aorta) Ao 126/77/98 02:49 PM Lesion found in Proximal LAD. Pre Stenosis: 40 Pre DAREN Flow: oparker 02:50 PM .014 [place] 190cm guide wire across target lesion- successful. reused? No oparker 02:50 PM HR=70 bpm, ERQA=437/84 mmhg, SpO2=94.0 %, Resp=13 B/min, Comment=NSR 02:51 PM Proximal Left Anterior Descending Coronary Artery with 40% stenosis. If graft is supplying this territory, 0 % stenosis. oparker 02:53 PM At 14:53 the ACT was >400 seconds. oparker 02:54 PM Recorded Pressure: Ao, HR=76, Condition=Condition 1 (Aorta) Ao 115/72/90 02:55 PM HR=79 bpm, FZDN=286/89 mmhg, SpO2=95.0 %, Resp=11 B/min, Comment=NSR 02:55 PM 2.5 mm x 12 mm Emerge Monorail balloon across target lesion- successful. reused? No oparker 02:56 PM Balloon inflated @ 12 satya for 12 seconds oparker 02:57 PM Balloon catheter removed intact. oparker 02:57 PM Time: 14:42LOC: 4 = Oriented but drowsy oparker 02:57 PM Time: 14:42 Patient comfortable and pain free: Yes oparker 02:58 PM 3.5mm x 16mm Synergy drug-eluting stent across target lesion- successful Lot #[id number] oparker 03:00 PM Stent delivery system removed intact. Stent undeployed. oparker 03:00 PM Recorded Pressure: Ao, HR=79, Condition=Condition 1 (Aorta) Ao 117/72/91 03:01 PM HR=62 bpm, GKIL=484/68 mmhg, SpO2=95.0 %, Resp=16 B/min, Comment=NSR 03:01 PM 3.5mm x 12mm Synergy drug-eluting stent across target lesion- successful Lot #[id number] oparker 03:04 PM Stent deployed @ 12 satya for 11 seconds oparker 03:05 PM Stent delivery system removed intact. oparker 03:05 PM HR=77 bpm, WVAB=028/97 mmhg, SpO2=95.0 %, Resp=13 B/min, Comment=NSR 03:05 PM Recorded Pressure: Ao, HR=77, Condition=Condition 1 (Aorta) Ao 145/87/112 03:08 PM Guide wire removed intact. oparker 03:08 PM .014 [place] 190cm guide wire across target lesion- successful. reused? No oparker 03:10 PM HR=84 bpm, MWDW=169/85 mmhg, SpO2=93.0 %, Resp=15 B/min, Comment=NSR 03:10 PM Recorded Pressure: Ao, HR=85, Condition=Condition 1 (Aorta) Ao 130/81/101 03:12 PM Time: 14:57 Patient comfortable and pain free: Yes oparker 03:13 PM Time: 14:57LOC: 4 = Oriented but drowsy oparker 03:15 PM HR=81 bpm, ZWTR=281/93 mmhg, SpO2=94.0 %, Resp=9 B/min, Comment=NSR 03:15 PM Lesion found in Proximal Circumflex. Pre Stenosis: 95 Pre DAREN Flow: 3: Complete and Brisk Flow/Perfusion oparker 03:17 PM 2.0 mm x 8 mm Mini Trek OTW balloon across target lesion- unsuccessful. reused? No oparker 03:18 PM .014 PT Graphix 300cm guide wire across target lesion- unsuccessful. reused? No oparker 03:19 PM Recorded Pressure: Ao, HR=85, Condition=Condition 1 (Aorta) Ao 147/114/131 03:20 PM Guide wire removed intact. oparker 03:20 PM Balloon catheter removed intact. oparker 03:20 PM Guide catheter removed intact. oparker 03:20 PM HR=80 bpm, WHDL=091/87 mmhg, SpO2=97.0 %, Resp=16 B/min 03:20 PM Procedure completed at 15:20 03/24/2019 oparker 03:22 PM Sign out completed: Radiation Dose 948.07 mGy, 49.5 Gy/cm2 Fluoro Time: 19.8 Isovue 370 - 200ml contrast 157 ml given by Ghulam Dacosta MD, [facility]. Complications: None. The patient was discharged out of the cath lab manager in stable condition. Sedation minutes 59. Cardiac Rehab Consult needed: No. Confirmed administered medications: Yes oparker 03:22 PM Did you address DAREN flow and Dominance? YesCoronary Dominance: Left oparker 03:22 PM Isovue 370 - 200ml,2 Bottle(s) used. oparker 03:22 PM Arterial sheath pulled, Vasc Band closure device used and was Successful S/N. oparker 03:23 PM 12 ml air in Vasc Band. oparker 03:23 PM Estimated Blood Loss: less than 20cc oparker 03:23 PM Post ECG NSR oparker 03:23 PM Post Blood Pressure 143/87 oparker 03:23 PM Information taught Cardiac Cath, PCI, TR Band, and PRIVACY OFFICER/Stent oparker 03:23 PM Education needs Plan of Care, Procedure, and Disease Process oparker 03:23 PM Learning barriers :None oparker 03:23 PM Education Methods Verbal oparker 03:23 PM Education evaluation Able to repeat information oparker 03:24 PM Site status No bleeding/ No Hematoma - Rt Groin as reported by Krystyna Schwartz RT (R) at 15:24 oparker 03:24 PM Family placed in consult room. oparker 03:27 PM Report given to Phyllis SOLOMON Pt taken to ICU Room #9. 15:27 oparker 03:27 PM Patient out of room: 15:27 oparker 03:30 PM Circumflex, Obtuse Marginal, Left Posterior Descending, and Left Posterolateral Coronary Arteries with 95% stenosis. If graft is supplying this area, 0 % stenosis oparker 03:30 PM Time: 15:30 Aggrastat Bolus: 50 ml Intravenous Given by Konrad Dow RN Land pump oparker 03:31 PM Time: 15:30 Aggrastat 12.5mg/250ml 18 ml Intravenous Given by Konrad Dow RN Land pump oparker 03:31 PM Time: 15:31 Plavix 600 mg Orally Given by Joshua Chowdhury RN oparmati Complications Complication None Hemodynamics Pressures Site Systolic/A Wave Diastolic/V Wave Mean AO 112 74 90 AO 126 77 98 AO 115 72 90 AO 117 72 91 AO 145 87 112 AO 130 81 101 AO 147 114 131 Post Procedure Information Blood Pressure: 143/87 mmHg Rhythm: NSR Post procedural instructions were given Closure Device Time Device Success/Fail 03/24/2019 3:24:00 PM Mechanical Compression Successful Site Checks Time Location Status Staff Sheath In? Note 03:24 PM Rt Groin No bleeding/ No Hematoma Krystyna Schwartz RT (R) Pulses Time Site Pre-Procedure Post-Procedure Note Bilateral DP & PT 2+ Bilateral radial 2+ Updated by Konrad Dow RN on 03/24/2019 3:32:14 PM electronically signed on 03/24/2019 3:32:54 PM with status of Final
--- NOTE | 2019-03-24 15:44 | Event Note ---
Date of Encounter: 03/24/19 Time of Encounter: 15:35 - Cardiology Event Note pci main culprit pLCx 95% BINDU x 1, dominant vessel. Remaining severe disease in OM with unfavorable takeoff for intervention. pLAD 40% stenosis. Continue medical therapy, if continued angina tomorrow consider PCI of OM via transfe moral route.
[2019-03-24] MEDS ORDERED: Tirofiban 12.5 MG/250ML 12.5 MG/250 ML BAG IVC SCH (15:45)
--- NOTE | 2019-03-24 16:09 | Electrocardiograph Report ---
[place] [id number] Test Date: 2019-03-23 Pat Name: Jose Crawford Department: 109 Room: [facility] Gender: M Armed Security Professional: YVONNE : 1960 Requested By: Calvin Barraza Order Number: [id number] Reading MD: Mesfin Hunter Measurements Intervals [place] Rate: 72 P: 70 NM: 160 QRS: 41 QRSD: 110 T: 66 QT: 394 QTc: 419 Interpretive Statements SINUS RHYTHM INFERIOR MYOCARDIAL INFARCTION, POSSIBLY ACUTE WITH POSTERIOR EXTENSION ACUTE GA Electronically Signed On 03-24-2019 16:08:06 EDT by Mesfin Hunter
[2019-03-25] MEDS: Nitroglycerin 25 MG/250 ML INFUS..BTL IVC SCH ×2 (03:42→08:51)
[2019-03-25 05:43] LABS: Basophils # 0.1 K/mcL (0.0-0.2); Basophils % 0.4 %; Hematocrit 39.6 % (37.5-50.1); Immature Granulocytes % 0.2 % (0-4); Lymphocytes % 21.4 %; Mean Corpuscular HGB Conc 32.8 g/dL (31.6-35.5); Mean Corpuscular Hemoglobin 29.2 pg (28.0-33.3); Mean Platelet Volume 9.9 fL (9.4-12.4); Monocytes # 1.5 K/mcL (0.0-1.3); Monocytes % 10.4 %; Neutrophils # 9.6 K/mcL (1.6-8.9); Platelet Count 216 K/mcL (140-400); Red Blood Count 4.45 M/mcL (4.19-5.50); Red Cell Distribution Width 13.6 % (11.5-14.5); Segmented Neutrophils % 67.6 %; White Blood Count 14.1 K/mcL (4.3-11.1)
[2019-03-25 06:05] LABS: BUN/Creatinine Ratio 10 (6-26); Blood Urea Nitrogen 10 mg/dL (6-20); Calcium 8.5 mg/dL (8.6-10.3); Carbon Dioxide 26 mEq/L (23-29); Chloride 101 mEq/L (98-107); Chol/HDL Ratio 3.3 (0-4.9); Cholesterol 97 mg/dL (< 200); Glucose 105 mg/dL (70-105); HDL Cholesterol 29 mg/dL (40-59); LDL Cholesterol,Calculated 44 mg/dL (0-99); Magnesium 1.8 mg/dL (1.6-2.6); Osmolality,Calculated 283 (280-300); Phosphorous 2.4 mg/dL (2.7-4.5); Potassium 3.6 mEq/L (3.5-5.1); Sodium 137 mEq/L (136-145); Triglycerides 118 mg/dL (< 150); eGFR For African Americans > 60 (> 60); eGFR For Non-African Americans > 60 (> 60)
[2019-03-25] MEDS ORDERED: Potassium Phosphate 44 MEQ in 0.9 % Sodium Chloride 250 ML IVPB ONE (07:36)
[2019-03-25] MEDS ORDERED: Adenosine 90 MG/30 ML MLS IV ONE (08:05)
[2019-03-25 08:18] LABS: Estimated Average Glucose 114 mg/dl
[2019-03-25] MEDS: Aspirin 81 MG TAB.CHEW PO SCH (08:43)
[2019-03-25] MEDS: Heparin 25,000 UNIT/250 ML D5W 25,000 UNIT/250 ML IV.SOLN IVC SCH ×2 (08:44→22:33)
[2019-03-25] MEDS: *HR* Heparin 5,000 UNIT/ML VIAL IVP PRN (08:54)
[2019-03-25] MEDS ORDERED: Isosorbide MONOnitrate (24 HR) 30 MG TAB.ER.24H PO SCH (09:00)
[2019-03-25] MEDS: Isosorbide MONOnitrate (24 HR) 30 MG TAB.ER.24H PO SCH (11:56)
--- NOTE | 2019-03-25 12:17 | Cardiology Progress Note ---
Date of Encounter: 03/25/19 Time of Encounter: 12:15 Assessment and Plan (1) ST elevation myocardial infarction (STEMI) Current Visit: Yes Status: Acute Presented as a STEMI evening of 03/23 and underwent emergent LHC, found to have severe 3 vessel CAD and it LVEF 45-50%. Initially, the patient had been recommended for CABG; however, the LAD did not a ppear to have significant/critical disease as mentioned in the cardiac catheterization report. Pt underwent LHC 03/24 and received PCI to culprit pLCx 95% BINDU x 1, dominant vessel. Remaining severe disease in OM with unfavorable takeoff for intervention. pLAD 40% stenosis. Continue medical therapy, if continued angina consider PCI of OM via transfemoral route. Pt is currently chest pain free, but on Nitro gtt at 60mcg/min. Discussed and reviewed with Dr. Sia Hanna. Recommend continued medical management. Started Imdur 30mg daily. Will wean off nitro. DAPT (ASA and Plavix) uninterrupted x 1 year. Pt verbalizes understanding. Qualifiers: Involved coronary artery: unspecified coronary artery Qualified Code(s): I21.3 - ST elevation (STEMI) myocardial infarction of unspecified site (2) HTN (hypertension) Current Visit: Yes Status: Chronic Qualifiers: Hypertension type: essential hypertension Qualified Code(s): I10 - Essential (primary) hypertension (3) Tobacco abuse Current Visit: Yes Status: Chronic (4) CAD (coronary artery disease) Current Visit: Yes Status: Chronic Qualifiers: Coronary Disease-Associated Artery/Lesion type: [place] artery [place] vs. transplanted heart: [place] heart Associated angina: with unspecified angina Qualified Code(s): I25.119 - Atherosclerotic heart disease of [place] coronary artery with unspecified angina pectoris Discussion w patient/family: The assessment and plan as outlined above was discussed with the patient and/or family members who expressed understanding and agreement. All questions were answered. Thank you for involving us in the care of your patient. Please call wi th any questions. Subjective Principal diagnosis: STEMI Interval history: Denies chest pain overnight. Reports intermittent dyspnea. Objective Vital Signs, Last 4 Hours Temp Pulse Resp BP Pulse Ox 03/25/19 11:47 97.7 F 03/25/19 11:00 79 15 130/76 92 03/25/19 10:00 97 19 144/79 92 03/25/19 09:00 93 16 149/79 93 Vital Signs Temp Pulse Resp BP Pulse Ox 03/25/19 11:47 97.7 F 03/25/19 11:00 79 15 130/76 92 03/25/19 10:00 97 19 144/79 92 03/25/19 09:00 93 16 149/79 93 03/25/19 08:00 92 18 127/72 94 03/25/19 07:31 99.3 F 03/25/19 07:00 68 18 145/80 94 03/25/19 06:00 80 15 141/117 91 03/25/19 05:00 78 21 146/76 91 03/25/19 04:57 98.8 F 03/25/19 04:00 66 11 132/85 92 03/25/19 03:00 92 15 138/68 96 03/25/19 02:00 84 23 154/78 90 03/25/19 01:00 66 17 133/94 92 03/25/19 00:00 68 25 122/85 94 03/24/19 23:00 74 15 140/75 94 03/24/19 22:00 71 17 130/80 95 03/24/19 21:00 71 28 154/82 92 03/24/19 20:39 98.7 F 03/24/19 20:00 80 18 133/74 96 03/24/19 19:00 75 13 144/88 93 03/24/19 18:30 75 14 145/87 93 03/24/19 18:15 95 17 142/95 92 03/24/19 18:00 105 22 116/71 88 03/24/19 17:45 83 16 132/74 98 03/24/19 17:30 82 17 129/71 97 03/24/19 17:15 86 16 143/82 92 03/24/19 17:00 86 17 143/82 92 03/24/19 16:00 77 17 146/86 94 03/24/19 15:45 77 14 146/86 94 03/24/19 15:00 85 20 95 03/24/19 13:34 17 94 03/24/19 13:00 77 15 131/86 96 Intake and Output 03/24/19 03/25/19 03/25/19 23:59 07:59 15:59 Intake Total 840 / 2226 500 / 832 332 / 832 Output Total 900 / 2850 500 / 700 200 / 700 Balance -60 / -624 0 / 132 132 / 132 Intake: IV Fluids 250 / 1636 500 / 832 332 / 832 Heparin 25,000 UNIT/250 ML D5W 0 / 0 25,000 unit In 250 ml @ 9.7 UNIT/KG/HR 10.001 mls/hr IVC . Q24H [facility] Rx#:[id number] Nitroglycerin Premix 25 MG/250 250 / 1500 250 / 582 332 / 582 ML 25 mg In 250 ml @ 5 MCG/MIN 3 mls/hr IVC .Q24H [facility] Rx#: [id number] Aggrastat 12.5 MG/250 ML 12.5 250 / 250 mg In 250 ml @ 0.15 MCG/KG/MIN 18.558 mls/hr IVC .[id number] [facility] Rx#:[id number] Oral 590 / 590 0 / 0 Output: Urine 900 / 1300 500 / 700 200 / 700 Other: Meal Dinner Percent of Meal Consumed 50% Weight 102.9 kg Patient Weight 03/25/19 23:59 Weight 102.9 kg General: Conversant, No Apparent Distress HEENT: Atraumatic, Normocephaly, Mucus Membranes Moist Neck: No JVD, Normal carotid pulses Cardiac: Reg Rate and Rhythm, Normal S1 and S2, No Murmur Lungs: Normal Breath Sounds, No Wheeze, Rales, Rhonchi Neuro: Alert and responsive, No focal deficits noted Abdomen: Soft, Non-Tender Skin: Other (right radial access site healing well. No bleeding, hematoma or ecchymosis noted.) Musculoskeletal: No Chest Wall Tenderness Extremities: No Clubbing, No Cyanosis, No Edema, Normal Pulses Results 03/25/19 04:35 03/25/19 04:35 Lab Results 03/25/19 03/25/19 04:35 04:35 WBC 14.1 H Hgb 13.0 D Hct 39.6 Plt Count 216 Sodium 137 Potassium 3.6 Chloride 101 Carbon Dioxide 26 BUN 10 Creatinine 0.97 Glucose 105 Calcium 8.5 L Magnesium 1.8 Short CBC 03/25/19 Range/Units 04:35 WBC 14.1 H (4.3-11.1) K/mcL Hgb 13.0 D (12.9-16.9) g/dL Hct 39.6 (37.5-50.1) % Plt Count 216 (140-400) K/mcL Neutrophils # 9.6 H (1.6-8.9) K/mcL BMP 03/25/19 Range/Units 04:35 Sodium 137 (136-145) mEq/L Potassium 3.6 (3.5-5.1) mEq/L Chloride 101 (98-107) mEq/L Carbon Dioxide 26 (23-29) mEq/L BUN 10 (6-20) mg/dL Creatinine 0.97 (0.70-1.30) mg/dL Glucose 105 (70-105) mg/dL Calcium 8.5 L (8.6-10.3) mg/dL Active Medications Albuterol/Ipratropium (Duoneb) 3 ml IH [id number] PRN PRN Reason: Shortness Of Breath/Wheezing Stop: 09/23/19 09:15 Last Admin: 03/24/19 13:35 Dose: 3 ml Documented by: Aspirin (Aspirin) 81 mg PO DAILY [facility] Stop: 09/23/19 09:01 Last Admin: 03/25/19 08:43 Dose: 81 mg Documented by: Atorvastatin Calcium (Lipitor) 40 mg PO HS [facility] Stop: 09/23/19 21:01 Last Admin: 03/24/19 19:28 Dose: 40 mg Documented by: Clopidogrel Bisulfate (Plavix) 75 mg PO DAILY [facility] Stop: 09/24/19 09:01 Last Admin: 03/25/19 08:43 Dose: 75 mg Documented by: Heparin Sodium (Porcine) (Heparin) 4,000 unit IVP Q6HR PRN PRN Reason: SEE COMMENTS Stop: 09/23/19 02:45 Last Admin: 03/25/19 08:54 Dose: 4,000 unit Documented by: Heparin Sodium (Porcine) (Heparin) 2,000 unit IVP Q6H PRN PRN Reason: SEE COMMENTS Stop: 09/23/19 02:45 Heparin Sodium/Dextrose (Heparin 25,000 Unit/250 Ml D5w) 25,000 unit in 250 mls @ 10.001 mls/hr IVC .Q24H [facility]; Protocol Stop: 09/23/19 02:46 Last Admin: 03/25/19 08:44 Dose: 17.7 unit/kg/hr, 18.2 mls/hr Documented by: Isosorbide Mononitrate (Imdur) 30 mg PO DAILY [facility] Stop: 09/24/19 11:16 Last Admin: 03/25/19 11:56 Dose: 30 mg Documented by: Labetalol HCl (Labetalol) 20 mg IVP Q4HR PRN PRN Reason: SBP>160 Stop: 09/23/19 00:01 Last Admin: 03/23/19 23:49 Dose: 20 mg Documented by: Metoprolol Tartrate (Lopressor) 12.5 mg PO BID [facility] Stop: 09/23/19 09:01 Last Admin: 03/25/19 08:43 Dose: 12.5 mg Documented by: Morphine Sulfate (Morphine Sulfate) 2 mg IVP Q2H PRN; Protocol PRN Reason: Chest Pain Stop: 09/23/19 02:03 Last Admin: 03/24/19 12:02 Dose: 2 mg Documented by: Nitroglycerin (Nitroglycerin) 0.4 mg SL Q5MPRN PRN PRN Reason: Chest Pain Stop: 09/22/19 22:42 Ondansetron HCl (Zofran) 4 mg IVP Q6HR PRN; Protocol PRN Reason: Nausea And Vomiting Stop: 09/23/19 01:58 Last Admin: 03/24/19 10:57 Dose: 4 mg Documented by: - Imaging and Cardiology Echo: report reviewed Cardiac cath: report reviewed Consult Discharge Plan - Plan Additional Instructions: Surgical consult for CABG Referrals: Gianfranco Lockett MD [Primary Care Provider] -
--- NOTE | 2019-03-25 13:44 | Internal Med Progress Note ---
Hospitalist Progress Note - Encounter Date of Encounter: 03/25/19 Time of Encounter: 13:42 - Subjective Interval History: I have seen and evaluated the patient at bedside. patient chest pain free, denies shortness of breath, nausea, vomiting or abdominal pain. - Exam Vitals: Temp Pulse Resp BP Pulse Ox 97.7 F 79 15 130/76 92 03/25/19 11:47 03/25/19 11:00 03/25/19 11:00 03/25/19 11:00 03/25/19 11:00 Exam: Vitals: Reviewed General: Alert and oriented x4. In no distress Cardiovascular: RRR, normal S1 & S2, no rubs, murmurs or gallops. Lungs: decreased breath sounds b/l, no wheezes or crackles. Abdomen: Obese, soft, non-tender, no rigidity. NABS in all 4 quadrants Extremities: No edema Neurological: No focal neurological deficits Rest of the physical exam is non contributory - Assessment and Plan (1) ST elevation myocardial infarction (STEMI) Current Visit: Yes Status: Acute Assessment and Plan: Pt underwent LHC 03/24 and received PCI to culprit pLCx 95% BINDU x 1, dominant vessel. Remaining severe disease in OM with unfavorable takeoff for intervention. pLAD 40% stenosis. Plan wean off nitro drip as tolerated continue dual anti-platelet therapy heparin drip per cardiology recommendations isosorbide 30mg/PO daily (2) HTN (hypertension) Current Visit: Yes Status: Chronic Assessment and Plan: BP is well controlled on metoprolol and isosorbide. patient to be wean off nitro drip. (3) Tobacco abuse Current Visit: Yes Status: Chronic Assessment and Plan: no wheezing on ausculation on bronchodilators Q4RT PRN incentive spirometry (4) CAD (coronary artery disease) Current Visit: Yes Status: Chronic Assessment and Plan: on dual antiplatelets therapy. DVT Prophylaxis: intermittent pneumatic compression - Summary of Assessment and Plan Summary of Assessment and Plan: patient to remain in the hospital due to STEMI on a heparin and nitro drip - Time Spent with Patient Total time spent is greater than 50% in coordination of care (as documented) at patient's floor/unit and/or counseling patient: Greater than 35 minutes (40) Plan of Care Discussed with: patient (and the nurse) Internal Medicine: Result - Labs CBC & Chem 7: 03/25/19 04:35 03/25/19 04:35 Labs: Short CBC 03/25/19 Range/Units 04:35 WBC 14.1 H (4.3-11.1) K/mcL Hgb 13.0 D (12.9-16.9) g/dL Hct 39.6 (37.5-50.1) % Plt Count 216 (140-400) K/mcL Neutrophils # 9.6 H (1.6-8.9) K/mcL BMP 03/25/19 04:35 Sodium 137 Potassium 3.6 Chloride 101 Carbon Dioxide 26 BUN 10 Creatinine 0.97 Glucose 105 Calcium 8.5 L - ABG Interpretation ABG results: PT/INR, D-dimer PT 11.6 Seconds (9.4-12.1) 03/24/19 03:03 Consult Discharge Plan - Plan Additional Instructions: Surgical consult for CABG Referrals: Gianfranco Lockett MD [Primary Care Provider] - (1) ST elevation myocardial infarction (STEMI) Qualifiers: Involved coronary artery: unspecified coronary artery Qualified Code(s): I21.3 - ST elevation (STEMI) myocardial infarction of unspecified site (2) HTN (hypertension) Qualifiers: Hypertension type: essential hypertension Qualified Code(s): I10 - Essential (primary) hypertension (4) CAD (coronary artery disease) Qualifiers: Coronary Disease-Associated Artery/Lesion type: [place] artery [place] vs. transplanted heart: [place] heart Associated angina: with unspecified angina Qualified Code(s): I25.119 - Atherosclerotic heart disease of [place] coronary artery with unspecified angina pectoris
[2019-03-25] MEDS: Acetaminophen 325 MG TABLET PO PRN ×2 (14:43→20:01)
[2019-03-25] MEDS: *HR* Labetalol 20 MG/4 ML SYRINGE IVP PRN ×2 (16:14→20:05)
--- NOTE | 2019-03-25 16:42 | Electrocardiograph Report ---
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
--- NOTE | 2019-03-25 17:01 | Electrocardiograph Report ---
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
[2019-03-26] MEDS: Acetaminophen 325 MG TABLET PO PRN (01:00)
[2019-03-26] MEDS: *HR* Labetalol 20 MG/4 ML SYRINGE IVP PRN (01:08)
[2019-03-26 05:22] LABS: Basophils # 0.1 K/mcL (0.0-0.2); Basophils % 0.6 %; Hematocrit 39.1 % (37.5-50.1); Hemoglobin 13.1 g/dL (12.9-16.9); Immature Granulocytes % 0.3 % (0-4); Lymphocytes # 3.3 K/mcL (0.6-4.6); Lymphocytes % 26.4 %; Mean Corpuscular HGB Conc 33.5 g/dL (31.6-35.5); Mean Corpuscular Hemoglobin 29.6 pg (28.0-33.3); Mean Corpuscular Volume 88.3 fL (83.0-100.0); Mean Platelet Volume 9.9 fL (9.4-12.4); Monocytes # 1.3 K/mcL (0.0-1.3); Monocytes % 10.2 %; Neutrophils # 7.8 K/mcL (1.6-8.9); Platelet Count 195 K/mcL (140-400); Red Blood Count 4.43 M/mcL (4.19-5.50); Red Cell Distribution Width 13.4 % (11.5-14.5); Segmented Neutrophils % 62.5 %; White Blood Count 12.5 K/mcL (4.3-11.1)
[2019-03-26 05:43] LABS: BUN/Creatinine Ratio 12 (6-26); Blood Urea Nitrogen 11 mg/dL (6-20); Calcium 8.6 mg/dL (8.6-10.3); Carbon Dioxide 26 mEq/L (23-29); Chloride 101 mEq/L (98-107); Glucose 104 mg/dL (70-105); Osmolality,Calculated 282 (280-300); Phosphorous 2.5 mg/dL (2.7-4.5); Potassium 3.6 mEq/L (3.5-5.1); Sodium 136 mEq/L (136-145); eGFR For African Americans > 60 (> 60); eGFR For Non-African Americans > 60 (> 60)
[2019-03-26] MEDS ORDERED: Metoprolol XL (24 HR) Succ 50 MG TAB.ER.24H PO SCH (09:00)
[2019-03-26] MEDS ORDERED: hydroCHLOROthiazide 25 MG TABLET PO SCH (09:00)
[2019-03-26] MEDS: Isosorbide MONOnitrate (24 HR) 30 MG TAB.ER.24H PO SCH (09:13)
[2019-03-26] MEDS: Aspirin 81 MG TAB.CHEW PO SCH (09:13)
--- NOTE | 2019-03-26 10:58 | Internal Med Progress Note ---
<Clyde Awan - Last Filed: 03/26/19 17:16> Hospitalist Progress Note - Encounter Date of Encounter: 03/26/19 Time of Encounter: 09:30 - Subjective Interval History: Patient states he is "not too bad". He has felt better since stent placement. Chronic knee pain bothering him a little bit. Patient appropriate for discharge. - Exam Vitals: Temp Pulse Resp BP Pulse Ox 98.2 F 80 16 158/100 92 03/26/19 07:28 03/26/19 10:00 03/26/19 10:00 03/26/19 10:00 03/26/19 10:00 Exam: PE general: middle aged male no distress. skin: dry lower extremities b/l eyes: PERRL. no jaundice ENT: oropharynx without lesions or erythema. moist nasal mucosa. cardio: RRR. no murmur gallop or rub. capillary refill <2 seconds upper ext. b/l. dorsalis pedis pulses 2+ b/l lower ext. respiratory: basilar dry crackles. CTA otherwise GI: obese. no abd bruits. nontender to palpation MSK: no pedal edema psych: appropriate affect. - Assessment and Plan (1) ST elevation myocardial infarction (STEMI) Status: Acute Assessment and Plan: -likely 2/2 CAD -patient had significant chest pain radiating to L arm with dyspnea, diaphoresis, and vomiting without blood. -EKG showed inf. RI. serial troponins not attained. first troponin was 0.03. -stent placed in Left circumflex -cont. ASA and plavix for one year per cards. Imdur, statin, BB as well. (2) CAD (coronary artery disease) Status: Chronic (3) HTN (hypertension) Status: Chronic (4) Tobacco abuse Status: Chronic Internal Medicine: Result - Labs CBC & Chem 7: 03/26/19 04:42 03/26/19 04:42 Labs: Short CBC 03/26/19 Range/Units 04:42 WBC 12.5 H (4.3-11.1) K/mcL Hgb 13.1 (12.9-16.9) g/dL Hct 39.1 (37.5-50.1) % Plt Count 195 (140-400) K/mcL Neutrophils # 7.8 (1.6-8.9) K/mcL BMP 03/26/19 04:42 Sodium 136 Potassium 3.6 Chloride 101 Carbon Dioxide 26 BUN 11 Creatinine 0.91 Glucose 104 Calcium 8.6 - ABG Interpretation ABG results: PT/INR, D-dimer PT 11.6 Seconds (9.4-12.1) 03/24/19 03:03 Consult Discharge Plan - Plan Instructions: Myocardial Infarction (DC), How to Stop Smoking (DC), Chronic Hypertension (DC) Additional Instructions: RISK FACTORS: STOP SMOKING: If you smoke, STOP. Smoking or tobacco use significantly increases your risk of heart disease because nicotine causes the arteries to narrow or constrict. It also causes fats to stick to the artery. Your chances of having a heart attack are greatly increased if you continue to smoke. For more information, call the education line for smoking cessation 6-401-JYPMSYB EAT A LOW FAT/CHOLESTEROL/SODIUM DIET: This diet may help reduce your chances of having a heart attack. LIFTING: With affected extremity: Avoid bending, pushing off and lifting more than 2 po unds for 24 hours The following 48 hours, avoid lifting anything more than 5 pounds Avoid strenuous activity or repetitive motions ACTIVITY: You may walk or climb stairs as tolerated You can resume sexual activity as tolerated In general, you are encouraged to engage in a minimum of 30 minutes or more of moderate intensity physical activity, such as brisk walking, daily or at least 3-4 times weekly BATHING Do not submerge the site into water (bath tub, hot tub, swimming pool, dishes) for 1 week. This can be a source for infection into the blood stream. You may shower after 24 hours SITE CARE: After 24 hours, you may remove the dressing and leave the site open to air. Keep the site clean and dry. Clean gently and pat dry. You can expect bruising and tenderness that gradually resolve within a week or two. Return to work as instructed per your physician Resume driving as instructed per physician Keep all scheduled follow up appointments Resume medications as instructed IMPORTANT: If prescribed a Platelet Aggregation Inhibitor such as, Plavix, Brilinta or Effient: Duration of therapy is minimum one year These medications are often used in combination with Aspirin in prevention of future heart attacks Never discontinue unless consult with your Mine Safety Director STROKE (CVA) Risk factors for a stroke are: Age, cigarette smoking, diabetes, excessive alcohol consumption, family history, high blood pressure, overweight, physical inactivity, prior stroke, heart attack, diagnosis of carotid artery stenosis or other artery disease. Warning signs: Sudden numbness or weakness of the face, arm or leg; especially on one side of the body, sudden confusion, trouble speaking or understanding, sudden trouble seeing in one or both eyes, sudden trouble walking, dizziness, loss of balance or coordination, sudden severe headache with no cause. Call 911 or go to the Emergency Room. CONGESTIVE HEART FAILURE: If you have been diagnosed with Congestive Heart Failure (CHF) and your symptoms return, make an appointment with your physician Weigh yourself daily. Notify your physician if you have a weight gain of two or more pounds in one day or five or more pounds in one week. If you experience any difficulty breathing, please call 911 BLEEDING: Although the risk of bleeding is minimal, it can happen. If you have any bleeding from the site, apply firm pressure above the puncture site for 10-15 minutes. If the bleeding does not stop, continue manual pressure and call 911 Contact [facility] ( ) if: You develop a fever greater than 101 degrees Fahrenheit Your site becomes reddened or has any drainage You have an increase in pain or burning at the site or if a large knot forms at the site. If you experience chest pain, shortness of breath, dizziness, or extreme tiredness, stop the activity and rest. Please notify [facility] office if you experience any of these symptoms and they are not relieved by rest please call 911!Surgical consult for CABG Referrals: Gianfranco Lockett MD [Primary Care Provider] - Prescriptions: Aspirin 81 mg PO DAILY #30 tab.chew Irbesartan/Hydrochlorothiazide [Avalide 150-12.5 mg Tablet] 1 each PO DAILY #30 tablet Isosorbide MONOnitrate (24 HR) [Imdur] 30 mg PO DAILY #30 tab.er.24h Atorvastatin [Lipitor] 40 mg PO HS #30 tablet Nitroglycerin [Nitrostat] 0.4 mg SL Q5MIN PRN #30 tab.subl PRN Reason: Chest Pain amLODIPine [Norvasc] 5 mg PO DAILY #30 tablet Clopidogrel [Plavix] 75 mg PO DAILY #30 tablet Metoprolol Succinate [Toprol Xl] 200 mg PO DAILY #60 tab.er.24h <Mykel Donald - Last Filed: 03/27/19 14:51> Hospitalist Progress Note - Encounter Date of Encounter: 03/26/19 - Exam Vitals: Temp Pulse Resp BP Pulse Ox 97.4 F L 85 20 158/96 92 03/26/19 12:04 03/26/19 13:00 03/26/19 13:00 03/26/19 13:00 03/26/19 13:00 - Assessment and Plan (1) ST elevation myocardial infarction (STEMI) Status: Acute (2) HTN (hypertension) Status: Chronic (3) Tobacco abuse Status: Chronic (4) CAD (coronary artery disease) Status: Chronic - Time Spent with Patient Total time spent is greater than 50% in coordination of care (as documented) at patient's floor/unit and/or counseling patient: Internal Medicine: Result - Labs CBC & Chem 7: 03/26/19 04:42 03/26/19 04:42 Labs: Short CBC 03/26/19 Range/Units 04:42 WBC 12.5 H (4.3-11.1) K/mcL Hgb 13.1 (12.9-16.9) g/dL Hct 39.1 (37.5-50.1) % Plt Count 195 (140-400) K/mcL Neutrophils # 7.8 (1.6-8.9) K/mcL BMP 03/26/19 04:42 Sodium 136 Potassium 3.6 Chloride 101 Carbon Dioxide 26 BUN 11 Creatinine 0.91 Glucose 104 Calcium 8.6 - ABG Interpretation ABG results: PT/INR, D-dimer PT 11.6 Seconds (9.4-12.1) 03/24/19 03:03 - Attending Attestation I examined this patient and my medical decision-making was reviewed with the Resident Physician on 03/26/19. I agree with the documented findings, disposition and treatment plan as described except to the extent set forth below. Mr Crawford is currently admitted for NSTEMI. He denies complaint at this time. No dyspnea Exam Alert. Comfortable Heart reg No wheeze Abd soft No edema OK to d/c today. Dx: CAD s/p STEMI, Panlobular emphysema <Clyde Awan G - Last Filed: 03/26/19 17:16> (1) ST elevation myocardial infarction (STEMI) Qualifiers: Involved coronary artery: unspecified coronary artery Qualified Code(s): I21.3 - ST elevation (STEMI) myocardial infarction of unspecified site (2) CAD (coronary artery disease) Qualifiers: Coronary Disease-Associated Artery/Lesion type: [place] artery [place] vs. transplanted heart: [place] heart Associated angina: with unspecified angina Qualified Code(s): I25.119 - Atherosclerotic heart disease of [place] coronary artery with unspecified angina pectoris (3) HTN (hypertension) Qualifiers: Hypertension type: essential hypertension Qualified Code(s): I10 - Essential (primary) hypertension <Mykel Donald A - Last Filed: 03/27/19 14:51> (1) ST elevation myocardial infarction (STEMI) Qualifiers: Involved coronary artery: unspecified coronary artery Qualified Code(s): I21.3 - ST elevation (STEMI) myocardial infarction of unspecified site (2) HTN (hypertension) Qualifiers: Hypertension type: essential hypertension Qualified Code(s): I10 - Essential (primary) hypertension (4) CAD (coronary artery disease) Qualifiers: Coronary Disease-Associated Artery/Lesion type: [place] artery [place] vs. transplanted heart: [place] heart Associated angina: with unspecified angina Qualified Code(s): I25.119 - Atherosclerotic heart disease of [place] coronary artery with unspecified angina pectoris
--- NOTE | 2019-03-26 11:19 | Cardiology Progress Note ---
Date of Encounter: 03/26/19 Time of Encounter: 11:16 Assessment and Plan (1) ST elevation myocardial infarction (STEMI) Current Visit: Yes Status: Acute Presented as a STEMI evening of 03/23 and underwent emergent LHC, found to have severe 3 vessel CAD and LVEF 45-50%. Initially recommended for CABG; however, the LAD did not appear to have significant/critical disease as mentioned in the cardiac catheterization report. Pt underwent repeat LHC 03/24 and received PCI to culprit pLCx 95% BINDU x 1, dominant vessel. Remaining severe disease in OM with unfavorable takeoff for intervention. pLAD 40% stenosis. Continue medical therapy, if continued angina consider PCI of OM via transfemoral route. Pt is currently chest pain free, Nitro gtt weaned off yesterday. Started Imdur 30mg daily. DAPT (ASA and Plavix) uninterrupted x 1 year. Pt verbalizes understanding. Continue Statin, BB. Hypertensive overnight. Home antihypertensives resumed. Pending BP this afternoon, d/c this evening or tomorrow. Okay to step down out of ICU. Heparin gtt stopped and DVT prophylaxis ordered. Qualifiers: Involved coronary artery: unspecified coronary artery Qualified Code(s): I21.3 - ST elevation (STEMI) myocardial infarction of unspecified site (2) HTN (hypertension) Current Visit: Yes Status: Chronic As above, BP not at goal. Resumed home BB--Toprol XL 200mg daily. ARB and HCTZ resumed. Continue to monitor BP. Qualifiers: Hypertension type: essential hypertension Qualified Code(s): I10 - Essential (primary) hypertension (3) Tobacco abuse Current Visit: Yes Status: Chronic Smoking cessation counseling given. (4) CAD (coronary artery disease) Current Visit: Yes Status: Chronic As above, s/p PCI to LCx. ASA, Plavix, Statin, BB, ARB, nitrates. Qualifiers: Coronary Disease-Associated Artery/Lesion type: [place] artery [place] vs. transplanted heart: [place] heart Associated angina: with unspecified angina Qualified Code(s): I25.119 - Atherosclerotic heart disease of [place] coronary artery with unspecified angina pectoris Discussion w patient/family: The assessment and plan as outlined above was discussed with the patient and/or family members who expressed understanding and agreement. All questions were answered. Thank you for involving us in the care of your patient. Please call with any questions. I will discuss all the above with Dr. Freeman and make changes as necessary. Subjective Principal diagnosis: STEMI Interval history: Denies chest pain overnight. Dyspnea improved. Objective Vital Signs, Last 4 Hours Temp Pulse Resp BP Pulse Ox 03/26/19 10:00 80 16 158/100 92 03/26/19 09:00 92 16 190/119 94 03/26/19 08:00 82 17 176/116 91 03/26/19 07:28 98.2 F Vital Signs Temp Pulse Resp BP Pulse Ox 03/26/19 10:00 80 16 158/100 92 03/26/19 09:00 92 16 190/119 94 03/26/19 08:00 82 17 176/116 91 03/26/19 07:28 98.2 F 03/26/19 07:00 74 12 164/92 91 03/26/19 06:00 92 21 163/112 93 03/26/19 05:00 76 15 147/105 92 03/26/19 04:00 98.2 F 82 20 167/107 92 03/26/19 03:00 80 15 140/100 92 03/26/19 02:00 87 18 165/101 91 03/26/19 01:00 68 21 186/119 91 03/26/19 00:00 98.6 F 82 18 151/97 92 03/25/19 23:38 84 03/25/19 23:00 93 24 126/113 95 03/25/19 21:00 87 20 167/94 95 03/25/19 20:04 98.3 F 03/25/19 20:00 94 18 163/100 94 03/25/19 19:00 104 18 183/98 94 03/25/19 18:00 96 20 155/92 93 03/25/19 17:00 95 17 149/80 91 03/25/19 16:51 98.3 F 03/25/19 16:00 89 17 170/98 96 03/25/19 15:00 70 17 140/110 96 03/25/19 14:00 98 25 162/99 93 03/25/19 13:00 80 22 93 03/25/19 12:00 90 22 166/98 94 03/25/19 11:47 97.7 F Intake and Output 03/25/19 03/26/19 03/26/19 23:59 07:59 15:59 Intake Total 374 / 1456 640 / 760 120 / 760 Output Total 900 / 2200 850 / 850 Balance -526 / -744 -210 / -90 120 / -90 Intake: IV Fluids 374 / 1216 Heparin 25,000 UNIT/250 ML D5W 374 / 374 25,000 unit In 250 ml @ 9.7 UNIT/KG/HR 10.001 mls/hr IVC . Q24H [facility] Rx#:[id number] Oral 640 / 760 120 / 760 Output: Urine 600 / 1900 850 / 850 Catheter 300 / 300 Other: Meal Breakfast Percent of Meal Consumed 100% General: Conversant, No Apparent Distress HEENT: Atraumatic, Normocephaly, Mucus Membranes Moist Neck: No JVD, Normal carotid pulses Cardiac: Reg Rate and Rhythm, Normal S1 and S2, No Murmur Lungs: Normal Breath Sounds, No Wheeze, Rales, Rhonchi Neuro: Alert and responsive, No focal deficits noted Abdomen: Soft, Non-Tender Skin: No rashes noted on visualized skin Musculoskeletal: No Chest Wall Tenderness Extremities: No Clubbing, No Cyanosis, No Edema, Normal Pulses Results 03/26/19 04:42 03/26/19 04:42 Lab Results 03/26/19 03/26/19 04:42 04:42 WBC 12.5 H Hgb 13.1 Hct 39.1 Plt Count 195 Sodium 136 Potassium 3.6 Chloride 101 Carbon Dioxide 26 BUN 11 Creatinine 0.91 Glucose 104 Calcium 8.6 Magnesium 2.0 Short CBC 03/26/19 Range/Units 04:42 WBC 12.5 H (4.3-11.1) K/mcL Hgb 13.1 (12.9-16.9) g/dL Hct 39.1 (37.5-50.1) % Plt Count 195 (140-400) K/mcL Neutrophils # 7.8 (1.6-8.9) K/mcL BMP 03/26/19 Range/Units 04:42 Sodium 136 (136-145) mEq/L Potassium 3.6 (3.5-5.1) mEq/L Chloride 101 (98-107) mEq/L Carbon Dioxide 26 (23-29) mEq/L BUN 11 (6-20) mg/dL Creatinine 0.91 (0.70-1.30) mg/dL Glucose 104 (70-105) mg/dL Calcium 8.6 (8.6-10.3) mg/dL Active Medications Acetaminophen (Tylenol) 650 mg PO Q6HR PRN PRN Reason: Pain Stop: 09/24/19 13:11 Last Admin: 03/26/19 01:00 Dose: 650 mg Documented by: Albuterol/Ipratropium (Duoneb) 3 ml IH [id number] PRN PRN Reason: Shortness Of Breath/Wheezing Stop: 09/23/19 09:15 Last Admin: 03/24/19 13:35 Dose: 3 ml Documented by: Aspirin (Aspirin) 81 mg PO DAILY [facility] Stop: 09/23/19 09:01 Last Admin: 03/26/19 09:13 Dose: 81 mg Documented by: Atorvastatin Calcium (Lipitor) 40 mg PO HS [facility] Stop: 09/23/19 21:01 Last Admin: 03/25/19 20:02 Dose: 40 mg Documented by: Clopidogrel Bisulfate (Plavix) 75 mg PO DAILY [facility] Stop: 09/24/19 09:01 Last Admin: 03/26/19 09:13 Dose: 75 mg Documented by: Heparin Sodium (Porcine) (Heparin) 5,000 unit SQ Q12HCO [facility] Stop: 09/25/19 18:01 Hydrochlorothiazide (Hydrochlorothiazide) 12.5 mg PO DAILY [facility]; Protocol Stop: 09/25/19 09:01 Last Admin: 03/26/19 09:13 Dose: 12.5 mg Documented by: Isosorbide Mononitrate (Imdur) 30 mg PO DAILY [facility] Stop: 09/24/19 11:16 Last Admin: 03/26/19 09:13 Dose: 30 mg Documented by: Labetalol HCl (Labetalol) 20 mg IVP Q4HR PRN PRN Reason: SBP>160 Stop: 09/23/19 00:01 Last Admin: 03/26/19 01:08 Dose: 20 mg Documented by: Losartan Potassium (Cozaar) 50 mg PO DAILY [facility]; Protocol Stop: 09/25/19 11:01 Metoprolol Succinate (Toprol Xl) 200 mg PO DAILY [facility] Stop: 09/25/19 09:01 Last Admin: 03/26/19 09:13 Dose: 200 mg Documented by: Morphine Sulfate (Morphine Sulfate) 2 mg IVP Q2H PRN; Protocol PRN Reason: Chest Pain Stop: 09/23/19 02:03 Last Admin: 03/24/19 12:02 Dose: 2 mg Documented by: Nitroglycerin (Nitroglycerin) 0.4 mg SL Q5MPRN PRN PRN Reason: Chest Pain Stop: 09/22/19 22:42 Ondansetron HCl (Zofran) 4 mg IVP Q6HR PRN; Protocol PRN Reason: Nausea And Vomiting Stop: 09/23/19 01:58 Last Admin: 03/24/19 10:57 Dose: 4 mg Documented by: - Imaging and Cardiology Echo: report reviewed Cardiac cath: report reviewed Consult Discharge Plan - Plan Additional Instructions: Surgical consult for CABG Referrals: Gianfranco Lockett MD [Primary Care Provider] -
[2019-03-26 13:43] VITALS: BP 158/96
[2019-03-26] MEDS ORDERED: amLODIPine 5 MG TABLET PO SCH (14:00)
--- NOTE | 2019-03-26 14:05 | Discharge Summary ---
Orders not resulted at time of discharge: Pending orders 03/24/19 13:16 CL Cardiac Catheterization [CL] Routine 03/24/19 15:31 ECG 12 lead ECG [ECG] Stat 03/26/19 22:00 Heparin anti-factor XA UFH [COAG] Routine Date of Encounter: 03/26/19 Time of Encounter: 14:02 - Discharge Diagnosis (1) ST elevation myocardial infarction (STEMI) Priority: Primary Status: Acute Qualifiers: Involved coronary artery: unspecified coronary artery Qualified Code(s): I21.3 - ST elevation (STEMI) myocardial infarction of unspecified site (2) HTN (hypertension) Priority: Secondary Status: Chronic Qualifiers: Hypertension type: essential hypertension Qualified Code(s): I10 - Essential (primary) hypertension (3) Tobacco abuse Priority: Secondary Status: Chronic (4) CAD (coronary artery disease) Priority: Secondary Status: Chronic Qualifiers: Coronary Disease-Associated Artery/Lesion type: [place] artery [place] vs. transplanted heart: [place] heart Associated angina: with unspecified angina Qualified Code(s): I25.119 - Atherosclerotic heart disease of [place] coronary artery with unspecified angina pectoris - Hospital Course Hospital course: Mr. Crawford is a 58 year old male that presented as a STEMI evening of 03/23 and underwent emergent LHC, found to have severe 3 vessel CAD and LVEF 45-50%. Initially recommended for CABG; however, the LAD did not appear to have significant/critical disease as mentioned in the cardiac catheterization report. TTE EF 55%, no significant valvular dysfunction. Pt underwent repeat LHC 03/24 and received PCI to culprit pLCx 95% BINDU x 1, dominant vessel. Remaining severe disease in OM with unfavorable takeoff for intervention. pLAD 40% stenosis. Continue medical therapy, if continued angina consider PCI of OM via transfemoral route. Pt has been chest pain free, Nitro gtt weaned off yesterday. Started Imdur 30mg daily. DAPT (ASA and Plavix) uninterrupted x 1 year. Pt verbalizes understanding. Continue Statin, BB. Hypertensive overnight. Home antihypertensives resumed and added Norvasc 5mg daily. Last BP 140s/80s. Right radial access site healed well. No bleeding, hematoma or ecchymosis noted. Restrictions discussed. Labs stable. D/C home in stable condition. Will coordinate outpt follow-up in 1 week. Time spent discussing smoking cessation with patient: 3 to 10 minutes - Time Spent with Patient Total time spent providing and/or coordinating discharge services: Less than 30 minutes - Discharge Medications Prescriptions: New Atorvastatin [Lipitor] 40 mg PO HS #30 tablet amLODIPine [Norvasc] 5 mg PO DAILY #30 tablet Clopidogrel [Plavix] 75 mg PO DAILY #30 tablet Continued Aspirin 81 mg PO DAILY #30 tab.chew Irbesartan/Hydrochlorothiazide [Avalide 150-12.5 mg Tablet] 1 each PO DAILY #30 tablet Isosorbide MONOnitrate (24 HR) [Imdur] 30 mg PO DAILY #30 tab.er.24h Nitroglycerin [Nitrostat] 0.4 mg SL Q5MIN PRN #30 tab.subl PRN Reason: Chest Pain Metoprolol Succinate [Toprol Xl] 200 mg PO DAILY #60 tab.er.24h Albuterol Sulfate [Proair Hfa] 1 puff IH Q6H PRN PRN Reason: Dyspnea Discontinued Atorvastatin [Lipitor] 20 mg PO HS Home Medications: Albuterol Sulfate [Proair Hfa] 1 puff IH Q6H PRN 04/27/16 [History] Aspirin 81 mg PO DAILY #30 tab.chew 03/26/19 [Rx] Atorvastatin [Lipitor] 40 mg PO HS #30 tablet 03/26/19 [Rx] Clopidogrel [Plavix] 75 mg PO DAILY #30 tablet 03/26/19 [Rx] Irbesartan/Hydrochlorothiazide [Avalide 150-12.5 mg Tablet] 1 each PO DAILY #30 tablet 03/26/19 [Rx] Isosorbide MONOnitrate (24 HR) [Imdur] 30 mg PO DAILY #30 tab.er.24h 03/26/19 [Rx] Metoprolol Succinate [Toprol Xl] 200 mg PO DAILY #60 tab.er.24h 03/26/19 [Rx] Nitroglycerin [Nitrostat] 0.4 mg SL Q5MIN PRN #30 tab.subl 03/26/19 [Rx] amLODIPine [Norvasc] 5 mg PO DAILY #30 tablet 03/26/19 [Rx] Allergies/Adverse Reactions: Allergy/AdvReac Type Severity Reaction Status Date / Time azithromycin [From Zithromax] AdvReac Nausea Verified 03/28/16 08:02 levofloxacin [From Levaquin] AdvReac Muscle Pain Verified 03/28/16 08:02 Date of admission: 03/23/19 21:41 Primary care physician: Gianfranco Lockett MD Consults: 03/23/19 22:41 Consult to Hospitalist [CONS] Stat Consulting Provider: Hospitalist Kamryn Reason for Consult: angina Time Notified: 22:45 Call Completed: Yes 03/23/19 22:42 Consult to Cardiac Rehabilitation-Phase1 [CONS] Routine Comment: Reason for Consult: AMI Call Completed: Yes Consult to Nurse Navigator [CONS] Routine Comment: 03/24/19 04:58 Consult to Cardiothoracic Surgery [CONS] Routine Consulting Provider: Cardiothoracic Surgery Janice Reason for Consult: triple vessel disease. Dr Barraza performed LHC and paged CT surgery. Placing consult order on his behalf. Call Completed: No 03/24/19 15:31 Consult to Cardiac Rehabilitation-Phase1 [CONS] Routine Comment: Reason for Consult: post op PCI Call Completed: Yes Discharging clinician: Robert Ramirez Anticipated date of discharge: 03/26/19 Physical Examination Vital Signs, Last 4 Hours Temp Pulse Resp BP Pulse Ox 03/26/19 13:00 85 20 158/96 92 03/26/19 12:04 97.4 F L 03/26/19 12:00 87 03/26/19 11:00 78 15 166/106 92 Vital Signs Temp Pulse Resp BP Pulse Ox 03/26/19 13:00 85 20 158/96 92 03/26/19 12:04 97.4 F L 03/26/19 12:00 87 03/26/19 11:00 78 15 166/106 92 03/26/19 10:00 80 16 158/100 92 03/26/19 09:00 92 16 190/119 94 03/26/19 08:00 82 17 176/116 91 03/26/19 07:28 98.2 F 03/26/19 07:00 74 12 164/92 91 03/26/19 06:00 92 21 163/112 93 03/26/19 05:00 76 15 147/105 92 03/26/19 04:00 98.2 F 82 20 167/107 92 03/26/19 03:00 80 15 140/100 92 07/03/19 02:00 87 18 165/101 91 03/26/19 01:00 68 21 186/119 91 03/26/19 00:00 98.6 F 82 18 151/97 92 03/25/19 23:38 84 03/25/19 23:00 93 24 126/113 95 03/25/19 21:00 87 20 167/94 95 03/25/19 20:04 98.3 F 03/25/19 20:00 94 18 163/100 94 03/25/19 19:00 104 18 183/98 94 03/25/19 18:00 96 20 155/92 93 03/25/19 17:00 95 17 149/80 91 03/25/19 16:51 98.3 F 03/25/19 16:00 89 17 170/98 96 03/25/19 15:00 70 17 140/110 96 Intake and Output 03/25/19 03/26/19 03/26/19 23:59 07:59 15:59 Intake Total 374 / 1456 640 / 1240 600 / 1240 Output Total 900 / 2200 850 / 1225 375 / 1225 Balance -526 / -744 -210 / 15 225 / 15 Intake: IV Fluids 374 / 1216 Heparin 25,000 UNIT/250 ML D5W 374 / 374 25,000 unit In 250 ml @ 9.7 UNIT/KG/HR 10.001 mls/hr IVC . Q24H [facility] Rx#:[id number] Oral 640 / 1240 600 / 1240 Output: Urine 600 / 1900 850 / 1225 375 / 1225 Catheter 300 / 300 Other: Meal Lunch Percent of Meal Consumed 100% General: Conversant, No Apparent Distress HEENT: Atraumatic, Normocephaly, Mucus Membranes Moist Neck: No JVD, Normal carotid pulses Cardiac: Reg Rate and Rhythm, Normal S1 and S2, No Murmur Lungs: Normal Breath Sounds, No Wheeze, Rales, Rhonchi Neuro: Alert and responsive, No focal deficits noted Abdomen: Soft, Non-Tender Skin: No rashes noted on visualized skin Musculoskeletal: No Chest Wall Tenderness Extremities: No Clubbing, No Cyanosis, No Edema, Normal Pulses - Patient Status Disposition: Home, Self-Care Condition: Fair Functional capacity at discharge: independent ambulation - Discharge Instructions Follow Up With: Gianfranco Lockett MD [Primary Care Provider] - Additional Instructions: RISK FACTORS: STOP SMOKING: If you smoke, STOP. Smoking or tobacco use significantly increases your risk of heart disease because nicotine causes the arteries to narrow or constrict. It also causes fats to stick to the artery. Your chances of having a heart attack are greatly increased if you continue to smoke. For more information, call the education line for smoking cessation 7-308-LGETCBQ EAT A LOW FAT/CHOLESTEROL/SODIUM DIET: This diet may help reduce your chances of having a heart attack. LIFTING: With affected extremity: Avoid bending, pushing off and lifting more than 2 pounds for 24 hours The following 48 hours, avoid lifting anything more than 5 pounds Avoid strenuous activity or repetitive motions ACTIVITY: You may walk or climb stairs as tolerated You can resume sexual activity as tolerated In general, you are encouraged to engage in a minimum of 30 minutes or more of moderate intensity physical activity, such as brisk walking, daily or at least 3-4 times weekly BATHING Do not submerge the site into water (bath tub, hot tub, swimming pool, dishes) for 1 week. This can be a source for infection into the blood stream. You may shower after 24 hours SITE CARE: After 24 hours, you may remove the dressing and leave the site open to air. Keep the site clean and dry. Clean gently and pat dry. You can expect bruising and tenderness that gradually resolve within a week or two. Return to work as instructed per your physician Resume driving as instructed per physician Keep all scheduled follow up appointments Resume medications as instructed IMPORTANT: If prescribed a Platelet Aggregation Inhibitor such as, Plavix, Brilinta or Effient: Duration of therapy is minimum one year These medications are often used in combination with Aspirin in prevention of future heart attacks Never discontinue unless consult with your Trichologist STROKE (CVA) Risk factors for a stroke are: Age, cigarette smoking, diabetes, excessive alcohol consumption, family history, high blood pressure, overweight, physical inactivity, prior stroke, heart attack, diagnosis of carotid artery stenosis or other artery disease. Warning signs: Sudden numbness or weakness of the face, arm or leg; especially on one side of the body, sudden confusion, trouble speaking or understanding, sudden trouble seeing in one or both eyes, sudden trouble walking, dizziness, loss of balance or coordination, sudden severe headache with no cause. Call 911 or go to the Emergency Room. CONGESTIVE HEART FAILURE: If you have been diagnosed with Congestive Heart Failure (CHF) and your symptoms return, make an appointment with your physician Weigh yourself daily. Notify your physician if you have a weight gain of two or more pounds in one day or five or more pounds in one week. If you experience any difficulty breathing, please call 911 BLEEDING: Although the risk of bleeding is minimal, it can happen. If you have any bleeding from the site, apply firm pressure above the puncture site for 10-15 minutes. If the bleeding does not stop, continue manual pressure and call 911 Contact [facility] ( ) if: You develop a fever greater than 101 degrees Fahrenheit Your site becomes reddened or has any drainage You have an increase in pain or burning at the site or if a large knot forms at the site. If you experience chest pain, shortness of breath, dizziness, or extreme tiredness, stop the activity and rest. Please notify [facility] office if you experience any of these symptoms and they are not relieved by rest please call 911!Surgical consult for CABG - Diet and Activity Activity: increase activity as tolerated Diet: low fat, low cholesterol
[2019-03-26] MEDS ORDERED: *HR* Heparin 5,000 UNIT/ML VIAL SQ SCH (18:00)
== END 2019-03-26 14:50 | disposition home or self-care (01) | DRG 174 ==
LOC: SUATTDRO 21:41 → ICNU 21:41
PROVIDERS: ADMIT Internal Medicine Cardiovascular Disease; ATTEND Internal Medicine